=== PATIENT | female | born 1940 | race Caucasian/White ===

== ENCOUNTER 2018-02-19 17:01 | Emergency (ER) | payer MEDICARE, SELFPAY ==
[2018-02-19 17:06] VITALS: BP 132/66; PULSE 72; RESP 16; TEMP 36.9; O2SAT 100
--- NOTE | 2018-02-19 17:21 | DI.CT_ITS ---
SYMPTOMS/DIAGNOSIS: FALL DOWNSTAIRS, LT ABD PAIN, MIDLINE L4 PAIN, LT HIP PAIN NONCONTRAST HEAD CT: There are no prior comparison exams. There is a defect in the right cerebellar skull presumably related to previous craniotomy. There is asymmetry in the cerebellar hemispheres, also likely post surgical. There is mild atrophy. No acute infarct, hemorrhage or mass is seen. There is no evidence of skull fracture. The sinuses and mastoid air cells appear clear. IMPRESSION: No acute abnormality. CT OF THE CERVICAL SPINE: There is no evidence of fracture. Degenerative disc changes are noted. The alignment appears normal. There is no paraspinal hematoma or prevertebral soft tissue swelling. IMPRESSION: Degenerative changes. No acute abnormality. CT OF THE CHEST, ABDOMEN AND PELVIS: There are no prior comparison exams. CHEST CT: There is a 10 mm nodule seen at the left lung base. No additional nodules are identified. No pleural or pericardial effusions or infiltrates are present. There is no evidence of adenopathy. No compression fractures, lytic or blastic lesions are seen. A nodule is incidentally noted in the right lobe of the thyroid. IMPRESSION: 10 mm left lower lobe nodule. Follow up is recommended according to the Fleischner's Society Guidelines given the patient's level of risk. ABDOMEN AND PELVIS CT: The liver, gallbladder, spleen, pancreas, kidneys and adrenals appear normal. There is no bowel dilatation, free air or free fluid. The left gonadal vein is somewhat prominent. The findings could indicate pelvic congestion syndrome. Clinical correlation is recommended. No acute fractures are seen. There are facet degenerative changes and mild spondylolisthesis at L 5 - S 1. There are severe degenerative changes involving the left hip and moderate degenerative changes of the right hip. IMPRESSION: No acute abnormality. Prominent left gonadal vein could indicate pelvic congestion syndrome. Clinical correlation is recommended. CT OF THE THORACIC SPINE RECONSTRUCTIONS: The images were reconstructed from the chest CT. There is no evidence of a fracture or suspicious lytic or blastic lesion. Degenerative changes are seen. There are several hemangiomas. There is a mild scoliosis. IMPRESSION: No acute abnormality. CT OF THE LUMBAR SPINE RECONSTRUCTIONS: The exam was reconstructed from the abdomen and pelvic CT. There is no evidence of an acute compression fracture. There are subacute appearing fractures of the left transverse processes of L 1 through L 3. Degenerative disc changes are seen greatest on the left side at L 4 - 5. There are facet degenerative changes causing mild spondylolisthesis at L 5 - S 1. No spondylolysis is seen. IMPRESSION: Subacute appearing left transverse processes fractures at L 1 through L 3. Degenerative changes.
[2018-02-19 17:51] LABS: Abs Immature Grans 0.03 k/cumm (0.0-0.09); Absolute Basophil Count 0.03 k/cumm (0.0-0.2); Absolute Lymphocyte Count 1.67 k/cumm (1.2-3.4); Absolute Monocyte Count 0.61 k/cumm (0.11-0.7); Absolute Neutrophil Count 5.91 k/cumm (1.2-6.7); Basophils % 0.4; Eosinophils % 3.5; HCT 36.6 % (36.0-46.0); HGB 12.3 g/dL (12.0-15.5); Immature Grans % 0.4; Lymphocytes % 19.5; Mean Corp. HGB Concentration 33.6 g/dL (32.0-36.0); Mean Corpuscular Hemoglobin 30.8 pg (27.0-33.0); Mean Corpuscular Volume 91.7 fL (80-95); Mean Platelet Volume 9.4 fL (8.0-11.0); Monocytes % 7.1; Neutrophils % 69.1; Platelet Count 222 x1000/uL (130-400); RBC 3.99 m/cumm (4.00-5.20); RBC Distribution Width 14.3 % (11.7-14.6); White Blood Cell Count 8.55 k/cumm (4.4-10.8)
[2018-02-19 18:04] LABS: ALT 27 U/L (12-78); AST 24 U/L (15-37); Albumin 3.7 g/dL (3.4-5.0); Alkaline Phosphatase 83 U/L (46-116); Anion Gap 7.4 mmol/L (3-11); BUN 13 mg/dL (7-18); Bilirubin, Total 0.4 mg/dL (0.2-1.0); CO2 29.6 mmol/L (21.0-32.0); CREATININE 0.76 mg/dL (0.55-1.02); Calcium 8.9 mg/dL (8.5-10.1); Chloride 101 mmol/L (98-107); Glucose 111 mg/dL (70-100); Potassium 3.8 mmol/L (3.5-5.1); Sodium 138 mmol/L (136-145); Total Protein 7.7 g/dL (6.4-8.2)
--- NOTE | 2018-02-19 18:37 | ED.GENADUL_ITS ---
Discharge Plan Disposition Patient Disposition: HOME Condition: Good Discharge Details Chief Complaint: Nk/Back Pain Clinical Impression: Closed fracture of transverse process of lumbar vertebra, Fall, Arthritis of left hip Primary Care Provider: Javier Anderson ED Provider: Gael Nava Home Meds and New Rx's Prescriptions: New acetaminophen [Mapap Extra Strength] 500 MG tablet 1,000 mg PO Q6H 5 Days Qty: 60 RF: 0 lidocaine [Lidoderm] 1 PATCH patch 1 ea Topical Q24H Qty: 4 RF: 0 Discharge Instructions Instructions: Back Pain (ED) Additional Instructions: Please take the Tylenol and Lidoderm patches as directed. If you notice any worsening of your pain, numbness or tingling, or inability to have a bowel movement or bladder movement please return immediately. The orthopedic surgeon' s office will contact you for a future visit. If you notice any worsening of your symptoms, or any new symptoms such as vomiting, diarrhea, fever, chills, shortness of breath, chest pain, numbness, weakness, or fainting , please return immediately to the emergency department for reevaluation. Please follow up with your primary care provider as soon as possible for reassessment and reevaluation. As always, it was a pleasure participating in your medical care today. Referrals: Ehsan Prado MD [ [facility] STAFF PHYSICIAN] - Medical Decision Making This is a pleasant 77-year-old female with no significant pain who presented for fall. She fell down roughly 10 steps, unsure if she struck her head. She had no loss of. This occurred yesterday, since then she has had moderate pain in her lower back, primarily over the lumbar spine, and the paraspinal component with midline tenderness as well. She has some associated left-sided abdominal tenderness, and left hip tenderness on exam. Because of the patient's age, I am concern for multiple potential fracture sites, and potential intra-abdominal pathology. We will get a CT scan of the head chest neck abdomen and pelvis. 7:50pm Initial CT report returned showing no acute process for all imaging studies except for a small pulmonary nodule and potential mild pelvic congestion. However review of the images did show concern for L1-L2 and L3 left transverse process fracture. I did contact the radiologist and reviewed it with him, and he does confirm that there is evidence of left transverse process fractures of those vertebra. Review of the images demonstrates no other acute process. On my reassessment the patient does feel better with her Lidoderm patch. She is still able to ambulate, but does have some pain in the left hip. There is severe arthritis noted in the left hip on CT scan. No evidence of fracture per the radiologist. With the patient showing no evidence of neurologic deficit, no signs of vertebral body fracture, no other significant acute process I do feel that she can be safely discharged home especially that her pain is controlled. We will recommend Tylenol and Motrin for home use, as well as Lidoderm patches at home. Because of her chronic left hip pain which I feel is notably worsened by her recent fall and the severe arthritis, as well as the transverse process fractures we will have her follow-up with orthopedics on an outpatient basis. She is requesting follow-up with Dr. Prado whom she has heard good things about. We discussed red flags for which to return. I have extensively reviewed the treatment plan and discharge instructions with the patient and their family. I have addressed all patient concerns at this time. The patient and family was made aware of what symptoms to monitor for that would warrant a return to the emergency department. Discussed the plan with the patient and family, they demonstrate verbal understanding and agreement with our assessment and plan at this time. Exam: CT Chest With Intravenous Contrast EXAM DATE/TIME: 02/19/2018 5:24 PM CLINICAL HISTORY: 77 years old, female; Pain; Other: Back pain Technique: Axial computed tomography images of the chest with intravenous contrast. Coronal and sagittal reformatted images were created and reviewed. Comparison: No relevant prior studies available. Findings: Mild interstitial lung scarring. No significant focal consolidation. Indeterminate 9.6 mm nodule in the left lower lobe. Please see the final report for details as to the local protocol for followup. Also see the Fleischner criteria below. Diffuse degenerative spurring of the spine without evidence of acute fracture or specific bony destructive process. Impression: Left lower lobe pulmonary nodule see above. No other specific etiology identified for the patient's symptoms. Exam: CT Abdomen and Pelvis With Intravenous Contrast EXAM DATE/TIME: 02/19/2018 5:24 PM CLINICAL HISTORY: 77 years old, female; Pain; Other: Back pain Technique: Axial computed tomography images of the abdomen and pelvis with intravenous contrast. Coronal and sagittal reformatted images were created and reviewed. Comparison: No relevant prior studies available. Findings: Prominent left-sided pelvic venous structures with an enlarged left gonadal vein suggesting possible pelvic congestion syndrome. Normal appearing solid organs. No intestinal obstruction. No obstructive uropathy. No free fluid. No free air. No inflammatory changes. Impression: Prominent left-sided pelvic venous structures with an enlarged left gonadal vein suggesting possible pelvic congestion syndrome. No other specific etiology identified for the patient's symptoms. As per Fleischner Society guidelines for follow-up and management of pulmonary nodules: Recommend initial follow-up chest CT at 3, 9 and 24 months. Consider contrast enhanced chest CT, PET scan and/or biopsy as clinically warranted. Dictated and Authenticated by: Vincenzo Lopez MD. Ordering:GEMMA POOLE MD EXAM: CT Thoracic Spine Without Intravenous Contrast EXAM DATE/TIME: 02/19/2018 5:28 PM CLINICAL HISTORY: 77 years old, female; Pain; Low back pain; Pain in thoracic spine TECHNIQUE: Axial computed tomography images of the thoracic spine without intravenous contrast. Coronal and sagittal reformatted images were created and reviewed. COMPARISON: No relevant prior studies available. FINDINGS: Mild diffuse degenerative spurring. No significant focal subluxation. No evidence of acute fracture. Mild apical lung scarring. Impression: No evidence of acute bony injury. EXAM: CT Lumbar Spine Without Intravenous Contrast EXAM DATE/TIME: 02/19/2018 5:28 PM CLINICAL HISTORY: 77 years old, female; Pain; Low back pain; Pain in thoracic spine TECHNIQUE: Axial computed tomography images of the lumbar spine without intravenous contrast. Coronal and sagittal reformatted images were created and reviewed. COMPARISON: No relevant prior studies available. FINDINGS: Mild diffuse degenerative disc and facet disease most pronounced at L4-5. No significant focal subluxation. No evidence of acute fracture. Impression: No evidence of acute bony injury. Dictated and Authenticated by: Vincenzo Lopez MD. Ordering:GEMMA POOLE MD HPI General Date/Time Provider Initiated Documentation: 02/19/18 17:21 . HPI Narrative: This is a pleasant 77-year-old female with no past medical history who presents today for evaluation after a fall. She is on no blood thinners. The patient states that she was working in the attic when she fell down 10 steps, landing on her back. She does not remember hitting her head but she does remember seeing funny shapes and things in her vision shortly thereafter, which quickly resolved. Since then she has had notable lower back pain, as well as left hip pain. She denies any headache, vision changes, or neck pain peer she has not taken anything for the pain at home. She has been using a walker secondary to the pain. Her pain is made worse with movement, it is improved by nothing. She denies any associated numbness, tingling, weakness. She does admit to some associated abdominal pain in the left upper and left mid abdominal regions. She has had no associated vomiting or diarrhea. She denies any saddle anesthesia, any bowel or bladder incontinence. She has been able to urinate well without difficulty. She has been able to eat without any significant difficulty. Patient denies any significant recent past surgical history, she denies any IV or illicit drug use. She denies any pertinent family history. She has no other complaints at this time. Related Data Home Medications Medication Instructions Recorded Confirmed acetaminophen [Mapap Extra 1,000 mg PO Q6H 5 Days #60 tab 02/19/18 Strength] lidocaine [Lidoderm] 1 ea TOPICAL Q24H #4 patch 02/19/18 Previous Rx's Medication Instructions Recorded acetaminophen [Mapap Extra 1,000 mg PO Q6H 5 Days #60 tab 02/19/18 Strength] lidocaine [Lidoderm] 1 ea TOPICAL Q24H #4 patch 02/19/18 Allergies Allergy/AdvReac Type Severity Reaction Status Date / Time codeine AdvReac Mild Nausea Unverified 02/19/18 17:23 General Stated Complaint: Nk/Back Pain MIKAL: 3 Review of Systems Review of Systems All systems reviewed & are unremarkable except as noted in HPI and below PFSH Social History Smoking/Tobacco Use Status: Never Exam Narrative Exam Narrative: 1.Const: Well-nourished, Well-developed, appearing stated age 2.Eyes: PERRL, no conjunctival injection, and symmetrical lids. 3.ENT: Atraumatic external nose and ears. Moist MM. Neck: Symmetric, trachea midline, No thyromegaly. There is no evidence of raccoon eyes, damon sign, CSF rhinorrhea, mastoid tenderness, cranial crepitus, hemotympanum, exophthalmos , or hyphema. Patient demonstrates intact dentition with no signs of tooth avulsion or fracture, no signs of jaw deformity, no evidence of a LeFort's fracture, with an intact palate, nose and orbital region. There is no evidence of a nasal septal hematoma. No proptosis. Jaw closes symmetrically. Airway is clear. 4.CVS: Regular rate and rhythm, Normal s1 and s2. No murmurs, carotid bruits, rubs, or gallops. Radial pulses 2+ bilaterally and symmetric. Dorsalis pedis pulses 2+ bilaterally and symmetric. 2+ capillary refill. No evidence of distant heart sounds. No extremity edema. No evidence of gross hemorrhage. 5.RESP: Airway clear, no obstructions. No abrasions or ecchymosis. Chest movement symmetric with respirations. No chest wall tenderness. Trachea midline. No crepitus. No step offs. No paradoxical movements. Lungs are clear to auscultation bilaterally. No rales, rhonchi, wheezing or stridor. Breath sound symmetric. No Sucking chest wounds. No clinical evidence of significant chest trauma. 6.GI: Soft, nondistended, mild tenderness over the left lower abdominal quadrant , no guarding or rebound. Bowel tones normoactive. No masses or organomegaly. No ecchymosis or abrasions. No periumbilical ecchymosis or seatbelt sign. No flank or CVA tenderness. No clinical signs of significant trauma. No clinical evidence of significant abdominal trauma. 7.MSK: No gross deformities or discolorations or lesions. Tolerates full range of motion of extremities however she has moderate tenderness on movement of the patient's left hip. Mild to moderate pain with logroll of left hip, no shortening of note no instability. All compartments of upper and lower extremities are soft with no tenderness. Vascular exam demonstrates brisk capillary refill and intact pulses in all extremities. Pelvic exam demonstrates a stable pelvis, nontender to lateral compression and palpation of symphysis pubis.. No midline tenderness to palpation over the CTS spine. Mild to moderate midline and paraspinal tenderness of the lumbar spine. No step-off sign. No significant deformity. Normal ROM in flexion, extension, side bend, and rotation. Patient has +5 out of 5 strength in the lower extremities in dorsiflexion and plantarflexion, knee flexion and extension, hip flexion and extension. There is +2 over 2 dorsalis pedis pulses bilaterally. There is normal sensation to the skin with light touch at the foot, knee, and hip. Normal saddle sensation. Good sensation over the deep sural nerve area bilaterally. Rectal exam demonstrated good tone. Reflexes are +2 over 4 in the patellar reflex bilaterally. +5 out of 5 strength in the medial, ulnar, radial nerve distribution bilaterally in the hands as well as intact light touch sensation to these dermatomes on the hands 8.Skin: Warm, Dry. No rashes or lesions. 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 Sensation grossly intact, no focal neurologic deficits. 10.Psych: (AAO) x3. Appropriate mood and affect Course Vital Signs Temperature 36.9 C 02/19/18 17:06 Pulse 72 02/19/18 17:06 Respiratory Rate 16 02/19/18 17:06 Blood Pressure 132/66 02/19/18 17:06 Pulse Oximetry 100 02/19/18 17:06 Temperature 36.9 C 02/19/18 17:06 Temperature Source Skin 02/19/18 17:06 Pulse 72 02/19/18 17:06 Respiratory Rate 16 02/19/18 17:06 Respiratory Effort 02/19/18 17:41 Blood Pressure 132/66 02/19/18 17:06 Blood Pressure Position Standing 02/19/18 17:06 Pulse Oximetry 100 02/19/18 17:06 Oxygen Delivery Method Room Air 02/19/18 17:06 Oxygen Flow Rate 0 02/19/18 17:06 Pain Level 8 02/19/18 17:06 Lab/Test Results Lab/Test Results: Laboratory Tests Range/Units 02/19/18 02/19/18 17:35 17:35 WBC (4.4-10.8) k/cumm 8.55 RBC (4.00-5.20) m/cumm 3.99 L Hgb (12.0-15.5) g/dL 12.3 Hct (36.0-46.0) % 36.6 MCV (80-95) fL 91.7 MCH (27.0-33.0) pg 30.8 MCHC (32.0-36.0) g/dL 33.6 RDW (11.7-14.6) % 14.3 Plt Count (130-400) x1000/uL 222 MPV (8.0-11.0) fL 9.4 Immature Gran % 0.4 Neutrophils % 69.1 Lymphocytes % 19.5 Monocytes % 7.1 Eosinophils % 3.5 Basophils % 0.4 Absolute Neutrophils (1.2-6.7) k/cumm 5.91 Absolute Lymphocytes (1.2-3.4) k/cumm 1.67 Absolute Monocytes (0.11-0.7) k/cumm 0.61 Absolute Eosinophils (0.0-0.7) k/cumm 0.30 Absolute Basophils (0.0-0.2) k/cumm 0.03 Sodium (136-145) mmol/L 138 Potassium (3.5-5.1) mmol/L 3.8 Chloride (98-107) mmol/L 101 Carbon Dioxide (21.0-32.0) mmol/L 29.6 Anion Gap (3-11) mmol/L 7.4 BUN (7-18) mg/dL 13 Creatinine (0.55-1.02) mg/dL 0.76 Estimated GFR/1.73 m2 (mL/min/1.73m2) >= 60.00 Glucose (70-100) mg/dL 111 H Calcium (8.5-10.1) mg/dL 8.9 Total Bilirubin (0.2-1.0) mg/dL 0.4 AST (15-37) U/L 24 ALT (12-78) U/L 27 Alkaline Phosphatase (46-116) U/L 83 Total Protein (6.4-8.2) g/dL 7.7 Albumin (3.4-5.0) g/dL 3.7
[2018-02-19] MEDS: Omnipaque 350 MG/ML 100 ML BTL IJ (18:45)
--- NOTE | 2018-02-19 18:47 | DI.VRAD_ITS ---
XAM: CT Head Without Intravenous Contrast EXAM DATE/TIME: 02/19/2018 5:24 PM CLINICAL HISTORY: 77 years old, female; Injury or trauma; Fall; Initial encounter; Blunt trauma TECHNIQUE: Axial computed tomography images of the head/brain without intravenous contrast. Coronal and sagittal reformatted images were created and reviewed. COMPARISON: No relevant prior studies available. FINDINGS: Prior right occipital craniotomy. 2.2 cm arachnoid cyst with impression on the right posterior brainstem. No evidence of hemorrhage. No other mass effect. No acute intracranial abnormality. No evidence of acute fracture. Impression: No evidence of acute intracranial process. EXAM: CT Cervical Spine Without Intravenous Contrast EXAM DATE/TIME: 02/19/2018 5:24 PM CLINICAL HISTORY: 77 years old, female; Injury or trauma; Fall; Initial encounter; Blunt trauma TECHNIQUE: Axial computed tomography images of the cervical spine without intravenous contrast. Coronal and sagittal reformatted images were created and reviewed. COMPARISON: No relevant prior studies available. FINDINGS: Diffuse degenerative disc and facet disease. Mild straightening of the cervical spine most likely positional. No focal subluxation. No acute fracture. Paraspinal soft tissues unremarkable. Lung apices within normal limits. Dictated and Authenticated by: Vincenzo Lopez MD. Ordering:GEMMA POOLE MD
--- NOTE | 2018-02-19 19:02 | DI.VRAD_ITS ---
EXAM: CT Chest With Intravenous Contrast EXAM DATE/TIME: 02/19/2018 5:24 PM CLINICAL HISTORY: 77 years old, female; Pain; Other: Back pain TECHNIQUE: Axial computed tomography images of the chest with intravenous contrast. Coronal and sagittal reformatted images were created and reviewed. COMPARISON: No relevant prior studies available. FINDINGS: Mild interstitial lung scarring. No significant focal consolidation. Indeterminate 9.6 mm nodule in the left lower lobe. Please see the final report for details as to the local protocol for followup. Also see the Fleischner criteria below. Diffuse degenerative spurring of the spine without evidence of acute fracture or specific bony destructive process. Impression: Left lower lobe pulmonary nodule see above. No other specific etiology identified for the patient's symptoms. EXAM: CT Abdomen and Pelvis With Intravenous Contrast EXAM DATE/TIME: 02/19/2018 5:24 PM CLINICAL HISTORY: 77 years old, female; Pain; Other: Back pain TECHNIQUE: Axial computed tomography images of the abdomen and pelvis with intravenous contrast. Coronal and sagittal reformatted images were created and reviewed. COMPARISON: No relevant prior studies available. FINDINGS: Prominent left-sided pelvic venous structures with an enlarged left gonadal vein suggesting possible pelvic congestion syndrome. Normal appearing solid organs. No intestinal obstruction. No obstructive uropathy. No free fluid. No free air. No inflammatory changes. Impression: Prominent left-sided pelvic venous structures with an enlarged left gonadal vein suggesting possible pelvic congestion syndrome. No other specific etiology identified for the patient's symptoms. As per Fleischner Society guidelines for follow-up and management of pulmonary nodules: Recommend initial follow-up chest CT at 3, 9 and 24 months. Consider contrast enhanced chest CT, PET scan and/or biopsy as clinically warranted. Dictated and Authenticated by: Vincenzo Lopez MD. Ordering:GEMMA POOLE MD
--- NOTE | 2018-02-19 19:10 | DI.VRAD_ITS ---
EXAM: CT Thoracic Spine Without Intravenous Contrast EXAM DATE/TIME: 02/19/2018 5:28 PM CLINICAL HISTORY: 77 years old, female; Pain; Low back pain; Pain in thoracic spine TECHNIQUE: Axial computed tomography images of the thoracic spine without intravenous contrast. Coronal and sagittal reformatted images were created and reviewed. COMPARISON: No relevant prior studies available. FINDINGS: Mild diffuse degenerative spurring. No significant focal subluxation. No evidence of acute fracture. Mild apical lung scarring. Impression: No evidence of acute bony injury. EXAM: CT Lumbar Spine Without Intravenous Contrast EXAM DATE/TIME: 02/19/2018 5:28 PM CLINICAL HISTORY: 77 years old, female; Pain; Low back pain; Pain in thoracic spine TECHNIQUE: Axial computed tomography images of the lumbar spine without intravenous contrast. Coronal and sagittal reformatted images were created and reviewed. COMPARISON: No relevant prior studies available. FINDINGS: Mild diffuse degenerative disc and facet disease most pronounced at L4-5. No significant focal subluxation. No evidence of acute fracture. Impression: No evidence of acute bony injury. Dictated and Authenticated by: Vincenzo Lopez MD. Ordering:GEMMA POOLE MD
[2018-02-19 20:20] VITALS: BP 130/67; PULSE 70; RESP 16; TEMP 36.7; O2SAT 100
== END 2018-02-19 20:27 | disposition home or self-care (01) ==
LOC: ER 20:36
PROVIDERS: Emergency Provider Student in an Organized Health Care Education/Training Program; PCP Internal Medicine
DX: S22.018A Other fracture of first thoracic vertebra, initial encounter for closed fracture (principal); S22.028A Other fracture of second thoracic vertebra, initial encounter for closed fracture; S22.038A Other fracture of third thoracic vertebra, initial encounter for closed fracture; W10.8XXA Fall (on) (from) other stairs and steps, initial encounter; M16.12 Unilateral primary osteoarthritis, left hip; R91.1 Solitary pulmonary nodule
CPT/HCPCS: 36415; 74177; 80053; 99285; 70450; 71260; 72125; 85025; 99284; J3490

== ENCOUNTER → 2018-03-10 09:39 | Outpatient (BNVA) | payer MEDICARE, SELFPAY | PROVIDERS: PCP Internal Medicine; Referring Provider Internal Medicine; Visit Provider Student in an Organized Health Care Education/Training Program | DX: S32.019A Unspecified fracture of first lumbar vertebra, initial encounter for closed fracture (principal); S32.029A Unspecified fracture of second lumbar vertebra, initial encounter for closed fracture; S32.039A Unspecified fracture of third lumbar vertebra, initial encounter for closed fracture; W10.8XXA Fall (on) (from) other stairs and steps, initial encounter; M16.12 Unilateral primary osteoarthritis, left hip | CPT/HCPCS: 99204; 99214; L0626 ==

== ENCOUNTER 2018-03-22 00:37 | Outpatient (CLI) | payer MEDICARE, SELFPAY ==
--- NOTE | 2018-03-22 07:33 | DI.RAD_ITS ---
SYMPTOM/DIAGNOSIS: OA LT HIP, M16.12 LEFT HIP INJECTION: Fluoroscopy Time: 4 seconds Fluoroscopy was utilized by Dr. Prado during left hip joint injection. Hard copy shows injection in the left hip joint.
--- NOTE | 2018-03-22 12:56 | OPPNE_ITS ---
Date of service: 03/22/18 Time of Service: 12:56 Procedure Note Date of procedure: 03/22/18 Procedure: Left Hip Injection with Fluoroscopic Guidance Surgeon/Proceduralist/Physician: Ehsan Prado Procedure Diagnosis: Left Hip Osteoarthritis Procedure Indications: Darvin has had persistent pain of the LEFT hip and groin. Noninvasive measures have been tried. To serve as both diagnostic and therapeutic, an injection under fluoroscopy was recommended. I had discussed the risks of the procedure and the patient elected to proceed. Procedure Description: Darvin was greeted in the flouroscopy room. The correct side was identified and the consent was reviewed with the patient and signed. The patient was then placed in the supine position on the fluoroscopy table. The LEFT hip was then prepped with Chloraprep. The anterolateral injection starting point was identiifed by bony landmarks and fluoroscopy. The skin and soft tissue in the tract of the injection was anesthetized with 1% Lidocaine. A spinal needle was then inserted deep into the hip joint at the level of the lateral femoral neck under fluoroscopic guidance. A small amount of Omnipaque solution was injected to confirm intraarticular placement. Once confirmed, the hip was injected with 6cc of 0.5% Bupivicaine and 80mg of Depo- Medrol. A bandaid was placed on the injection site. The patient tolerated the procedure well and noted improvement in pre-injection pain.
[2018-03-22] MEDS: Bupivacaine 0.5% Pres-Free 10 ML VIAL 6 ML IJ (13:04)
[2018-03-22] MEDS: Omnipaque 300 MG/ML 10 ML BTL IJ (13:05)
[2018-03-22] MEDS: methylPREDNISolone ACETATE 80 MG/ML VIAL IM (13:05)
== END 2018-03-22 00:57 ==
PROVIDERS: PCP General Practice; Visit Provider Student in an Organized Health Care Education/Training Program
DX: M25.552 Pain in left hip (principal); M16.12 Unilateral primary osteoarthritis, left hip
CPT/HCPCS: 20610; 77002; J1040

== ENCOUNTER → 2018-04-05 09:45 | Outpatient (BNVA) | payer MEDICARE, SELFPAY | PROVIDERS: PCP General Practice; Referring Provider General Practice; Visit Provider Student in an Organized Health Care Education/Training Program | DX: M16.12 Unilateral primary osteoarthritis, left hip (principal) | CPT/HCPCS: 99213 ==

== ENCOUNTER 2018-04-14 13:21 | Outpatient (CLI) | payer MEDICARE, SELFPAY ==
[2018-04-14 13:59] LABS: Abs Immature Grans 0.01 k/cumm (0.0-0.09); Absolute Basophil Count 0.04 k/cumm (0.0-0.2); Absolute Lymphocyte Count 1.41 k/cumm (1.2-3.4); Absolute Monocyte Count 0.41 k/cumm (0.11-0.7); Absolute Neutrophil Count 3.39 k/cumm (1.2-6.7); Basophils % 0.7; Eosinophils % 1.9; HCT 34.5 % (36.0-46.0); HGB 11.4 g/dL (12.0-15.5); Immature Grans % 0.2; Lymphocytes % 26.3; Mean Corpuscular Hemoglobin 30.6 pg (27.0-33.0); Mean Corpuscular Volume 92.5 fL (80-95); Mean Platelet Volume 9.3 fL (8.0-11.0); Monocytes % 7.6; Neutrophils % 63.3; Platelet Count 199 x1000/uL (130-400); RBC 3.73 m/cumm (4.00-5.20); RBC Distribution Width 13.6 % (11.7-14.6); White Blood Cell Count 5.36 k/cumm (4.4-10.8)
[2018-04-14 14:45] LABS: ALT 23 U/L (12-78); AST 15 U/L (15-37); Albumin 3.5 g/dL (3.4-5.0); Alkaline Phosphatase 66 U/L (46-116); Anion Gap 6.6 mmol/L (3-11); BUN 26 mg/dL (7-18); Bilirubin, Total 0.5 mg/dL (0.2-1.0); CO2 30.4 mmol/L (21.0-32.0); CREATININE 1.01 mg/dL (0.55-1.02); Calcium 8.9 mg/dL (8.5-10.1); Chloride 102 mmol/L (98-107); Estimated GFR 53.43 (mL/min/1.73m2); Glucose 136 mg/dL (70-100); Potassium 4.1 mmol/L (3.5-5.1); Sodium 139 mmol/L (136-145); Total Protein 6.5 g/dL (6.4-8.2)
== END 2018-04-14 13:41 ==
PROVIDERS: PCP General Practice; Visit Provider General Practice
DX: R53.83 Other fatigue (principal); M16.12 Unilateral primary osteoarthritis, left hip
CPT/HCPCS: 36415; 80053; 84443; 85025

== ENCOUNTER → 2018-05-19 09:44 | Outpatient (BNVA) | payer MEDICARE, SELFPAY | PROVIDERS: PCP General Practice; Referring Provider General Practice; Visit Provider Student in an Organized Health Care Education/Training Program | DX: M16.12 Unilateral primary osteoarthritis, left hip (principal); Z47.89 Encounter for other orthopedic aftercare | CPT/HCPCS: 99212; 99213 ==

== ENCOUNTER → 2018-06-23 10:44 | Outpatient (BNVA) | payer MEDICARE, SELFPAY | PROVIDERS: PCP General Practice; Referring Provider General Practice; Visit Provider Student in an Organized Health Care Education/Training Program | DX: M16.12 Unilateral primary osteoarthritis, left hip (principal); Z71.89 Other specified counseling | CPT/HCPCS: 99212 ==

== ENCOUNTER → 2020-01-23 10:23 | Outpatient (BNVA) | payer MEDICARE, SELFPAY | PROVIDERS: PCP General Practice; Referring Provider General Practice; Visit Provider Student in an Organized Health Care Education/Training Program | DX: M16.12 Unilateral primary osteoarthritis, left hip (principal) | CPT/HCPCS: 99213 ==

== ENCOUNTER 2020-03-14 13:23 | Outpatient (CLI) | payer MEDICARE, SELFPAY ==
--- NOTE | 2020-03-14 13:25 | DI.RAD_ITS ---
EXAM: XR PELVIS AP CLINICAL HISTORY: left hip DJD. TECHNIQUE: 2D digital imaging was performed. COMPARISON: No exams were available for comparison FINDINGS: BONES: No acute fracture is present. No bony destructive lesion is seen. The sacrum is largely obscur ed due to overlying bowel. JOINTS: No dislocation present. Marked degenerative changes are seen in the left hip with marked join t space narrowing, subchondral sclerosis and cysts and periarticular spurring. Moderate degenerative changes are seen in the right hip with moderate joint space narrowing, subchondral sclerosis and cys ts and periarticular spurring. SOFT TISSUE: Normal. IMPRESSION: Marked left and moderate right hip osteoarthritis. DATA REPOSITORY: RADIATION DOSE DELIVERED:
== END 2020-03-14 13:43 ==
PROVIDERS: PCP General Practice; Referring Provider General Practice; Visit Provider Physician Assistant
DX: M16.0 Bilateral primary osteoarthritis of hip (principal)
CPT/HCPCS: 72170

== ENCOUNTER 2020-03-16 01:27 | Outpatient (CLI) | payer MEDICARE, SELFPAY ==
[2020-03-16 10:51] LABS: HCT 37.6 % (36.0-46.0); HGB 12.1 g/dL (11.2-15.7); MCH 30.3 pg (27.0-33.0); MCHC 32.2 % (32.0-36.0); MCV 94.2 fL (80-95); MPV 9.5 fL (8.0-11.0); Platelet Count 236 10^3/uL (130-400); RBC 3.99 10^6/uL (3.93-5.22); RDW 13.5 % (11.7-14.6); RDW-SD 46.8 fL; WBC 5.56 10^3/uL (4.4-10.8)
[2020-03-16 12:22] LABS: Anion Gap 6.7 mmol/L (3-11); BUN 20 mg/dL (7-18); CO2 30.3 mmol/L (21.0-32.0); CREATININE 0.86 mg/dL (0.55-1.02); Calcium 9.4 mg/dL (8.5-10.1); Chloride 101 mmol/L (98-107); Glucose 82 mg/dL (74-106); Potassium 4.2 mmol/L (3.5-5.1); Sodium 138 mmol/L (136-145)
[2020-03-18 09:08] LABS: SARS-CoV-2 RNA Not Detected (NotDetected); SARS-CoV-2 RNA Source Nasal/Nares
== END 2020-03-16 01:47 ==
PROVIDERS: PCP General Practice; Visit Provider Student in an Organized Health Care Education/Training Program
DX: M25.552 Pain in left hip (principal); M16.12 Unilateral primary osteoarthritis, left hip; Z11.59 Encounter for screening for other viral diseases; Z01.818 Encounter for other preprocedural examination; Z01.812 Encounter for preprocedural laboratory examination
CPT/HCPCS: 36415; 80048; 85027; 86850; 86900; 86901; U0003

== ENCOUNTER 2020-03-20 07:13 | Observation (INO) | payer MEDICARE, SELFPAY ==
[2020-03-20] VITALS (8 sets, daily range): BP systolic 95–121; BP diastolic 49–69; PULSE 57–84; RESP 14–16; TEMP 36.2–36.5; O2SAT 96–100
--- NOTE | 2020-03-20 07:00 | DI.RAD_ITS ---
EXAM: XR HIP LT IN OR CLINICAL HISTORY: total hip TECHNIQUE: 2D and realtime digital imaging was performed. CONTRAST MATERIAL: Refer to procedure report. COMPARISON: No exams were available for comparison FINDINGS: Fluoroscopy was provided for Dr. Prado during the performance of a left total hip replacement. P lelia refer to the procedure report for complete details. Fluoro time: 46 seconds IMPRESSION: RADIATION DOSE DELIVERED:
[2020-03-20] MEDS: Lactated Ringers 1,000 ML 80 ML IV (07:04)
[2020-03-20] MEDS: Celecoxib 200 MG CAP 400 MG PO (07:04)
[2020-03-20] MEDS: Acetaminophen 500 MG TAB 1000 MG PO ×2 (07:04→13:42)
--- NOTE | 2020-03-20 07:16 | W.PM.DS.N ---
Documented by User: Grisel Bunnxon 03/20/20 07:20 DS: Diagnosis Discharge Diagnosis (1) Osteoarthritis of left hip: Status: Chronic Discharge Plan Disposition Patient Disposition: HOME Condition: Good Discharge Details Reason For Visit: L HIP DJD Admit Date/Time: 03/20/20 06:05 Admit Provider: Ehsan Prado Attending Provider: Ehsan Prado Primary Care Provider: Terry Andrade Hospital Course Hospital Course: Patient was admitted to the medical/surgical floor following the procedure. The surgery was tolerated well without any notable medical, surgical, or anesthetic complications. Mobilization began post-operatively. They were voiding spontaneously. Vitals were stable. Physical therapy worked with the patient and was cleared for discharge home. No acute medical issues. Pain was controlled on oral regimen. Home Meds and New Rx's Prescriptions: New celecoxib [Celebrex] 200 mg capsule 200 mg PO BID Qty: 30 RF: 2 aspirin 81 mg tablet,delayed release (DR/EC) 81 mg PO BID 30 Days Qty: 60 RF: 0 acetaminophen 500 mg tablet 500 mg PO Q6H PRN (Reason: pain) Qty: 60 RF: 2 oxycodone 5 mg tablet 5 mg PO Q6H PRN (Reason: severe post-operative pain) Qty: 12 RF: 0 pantoprazole 40 mg tablet,delayed release (DR/EC) 40 mg PO DAILY 30 Days Qty: 30 RF: 0 No Action (DME) Raised Toilet Seat See Rx Instructions .ROUTE .MEDSUPPLY Qty: 1 RF: 0 (DME) Shower Chair See Rx Instructions .ROUTE .MEDSUPPLY Qty: 1 RF: 0 [place] 3 Fish Oil 900-1,400 mg Capsule,Delayed Release(Dr/Ec) 1 cap PO DAILY RF: 0 Ca-D3-mag [id number]-aphe-eah-shaquille-bor [Calcium 600-D3 Plus (mag-zinc)] 600 mg calcium- 800 unit-50 mg Tablet 2 tab PO BID RF: 0 Discharge Instructions Additional Instructions: Total Hip Discharge Instructions Activity: The most important activity is to walk. You should try to take short walks a few times a day. You have no restrictions on movement or positioning, but do not try to force what you do. You will find some stiffness and weakness with hip flexion (lifting your knee). Do not try to strengthen this too early, continue to practice walking and stairs and this will come. - Outpatient physical therapy can be helpful to help return you to a normal gait and improve your flexibility and strength. This can start around 2 weeks. For some patients, it?s not necessary. Usually this is determined at the time of discharge or at the first post-operative visit. - You should wear the ALEXIS hose on both legs for 2 weeks. Dressing: Keep the surgical dressing in place for at least one week. After the first week it may be removed and replace with light gauze and tape or nothing. It may get wet after 3 days but avoid soaking the dressing. If it gets wet, just lightly pat dry. It is important to always keep some gauze between skin folds, especially when you are sitting. Spend some time with the wound exposed when you are lying flat as the incision does wrinkle onto itself. Medications: - You should take Tylenol and an anti-inflammatory Celebrex as your primary pain control medications. If the Celebrex is too expensive or not covered, please call the office for another alternative (Advil/Ibuprofen or Naproxen/Aleve). - You have been prescribed a stronger pain medication Oxycodone for breakthrough pain, take as needed as prescribed. - You have also been prescribed a stomach acid reduction agent Pantoprozole to help reduce stomach acid and reflux. - You will be taking Aspirin 81mg twice a day for DVT prevention unless instructed otherwise. - If you have constipation you should take Colace (which was prescribed) or Miralax (which you may purchase [id number]). It takes most people 3-4 days to have a bowel movement. Follow-up: 2 weeks If you have any acute concerns or questions, please do not hesitate to contact the office at [phone]. You may contact Dr. Prado with any questions after hours through the hospital at [phone] or on his cell phone at [phone]. 1. Encounter Date and Reason I certify that DARVIN RED was seen by Ehsan Prado MD on 03/20/20 and that I had a [id number] encounter with this patient that meets the physician face to face encounter requirements. 2. Clinical Findings Supporting Skilled Need and Homebound Status I certify that home health services are medically necessary, include either intermittent retirement and/or physical/speech therapy, and that this patient is homebound in that absences from the home require considerable and taxing effort and are infrequent or of short duration, or are attributable to the need to receive medical care. [X] (a) Attached documentation from encounter provides clinical findings supporting skilled need and homebound status (including what assistance patient requires to leave the home). The encounter with the patient was in whole, or in part, for the following medical condition, which is the primary reason for home health care: L HIP DJD Prison: Physical Therapy: Darvin would benefit from physical therapy to address gait abnormalities, weakness from DOUGLAS. She should avoid deep flexion and aggressive motions but should focus on ambulation, stair climbing and gentle strengthening. ROM shold not be passively assessed or treated early on. Speech Therapy: Homebound: Darvin is unable to leave her home unassisted. She is homebound. 3. Certification and Authentication I certify that I composed the above information based on my clinical judgement relating to this patient's medical condition and, if applicable, clinical findings communicated to me by the NPP or inpatient physician who performed the Home Health Referral. All further orders will be obtained through Dr. Prado Referrals: Ehsan Prado MD [ [facility] STAFF PHYSICIAN] - Activity:: Activity as Tolerated Equipment/Supplies:: Walker Diet:: As Tolerated Discharge Orders Discharge Orders: Discharge Order (Routine); Ordered 03/20/20 Ordered By: Ehsan Prado DS: Data Vitals/I&O Vitals and I&O: Vital Signs Temperature 36.4 C L 03/20/20 06:17 Pulse 84 03/20/20 06:17 Pulse Rhythm Regular 03/20/20 06:17 Respiratory Rate 16 03/20/20 06:17 Respiratory Effort 03/20/20 06:17 Respiratory Depth Normal 03/20/20 06:17 Respiratory Pattern Normal 03/20/20 06:17 Blood Pressure 107/68 03/20/20 06:17 Pulse Oximetry 99 03/20/20 06:17 Oxygen Delivery Method Room Air 03/20/20 06:17 Oxygen Flow Rate 0 03/20/20 06:17 Pain Level 0 03/20/20 06:17 Intake & Output 03/19/20 03/19/20 03/20/20 11:59 23:59 11:59 Weight 56.699 kg 57.7 kg [facility] Medical History Closed left ankle fracture Fatigue Surgical History Brain tumor Reports between [id number] 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 Documented by User: Ehsan Prado MD 03/20/20 13:34 Date of service: 03/20/20 Time of Service: 13:30 Discharge Plan Disposition Patient Disposition: HOME Condition: Good Discharge Details Reason For Visit: L HIP DJD Admit Date/Time: 03/20/20 06:05 Admit Provider: Ehsan Prado Attending Provider: Ehsan Prado Primary Care Provider: Terry Andrade Hospital Course Hospital Course: Patient was admitted to the medical/surgical floor following the procedure. The surgery was tolerated well without any notable medical, surgical, or anesthetic complications. Mobilization began post-operatively. They were voiding spontaneously. Vitals were stable. Physical therapy worked with the patient and was cleared for discharge home. No acute medical issues. Pain was controlled on oral regimen. Home Meds and New Rx's Prescriptions: New celecoxib [Celebrex] 200 mg capsule 200 mg PO BID Qty: 30 RF: 2 aspirin 81 mg tablet,delayed release (DR/EC) 81 mg PO BID 30 Days Qty: 60 RF: 0 acetaminophen 500 mg tablet 500 mg PO Q6H PRN (Reason: pain) Qty: 60 RF: 2 oxycodone 5 mg tablet 5 mg PO Q6H PRN (Reason: severe post-operative pain) Qty: 12 RF: 0 pantoprazole 40 mg tablet,delayed release (DR/EC) 40 mg PO DAILY 30 Days Qty: 30 RF: 0 No Action (DME) Raised Toilet Seat See Rx Instructions .ROUTE .MEDSUPPLY Qty: 1 RF: 0 (DME) Shower Chair See Rx Instructions .ROUTE .MEDSUPPLY Qty: 1 RF: 0 [place] 3 Fish Oil 900-1,400 mg Capsule,Delayed Release(Dr/Ec) 1 cap PO DAILY RF: 0 Ca-D3-mag nb-yybr-ont-shaquille-bor [Calcium 600-D3 Plus (mag-zinc)] 600 mg calcium- 800 unit-50 mg Tablet 2 tab PO BID RF: 0 Discharge Instructions Additional Instructions: Total Hip Discharge Instructions Activity: The most important activity is to walk. You should try to take short walks a few times a day. You have no restrictions on movement or positioning, but do not try to force what you do. You will find some stiffness and weakness with hip flexion (lifting your knee). Do not try to strengthen this too early, continue to practice walking and stairs and this will come. - Outpatient physical therapy can be helpful to help return you to a normal gait and improve your flexibility and strength. This can start around 2 weeks. For some patients, it?s not necessary. Usually this is determined at the time of discharge or at the first post-operative visit. - You should wear the ALEXIS hose on both legs for 2 weeks. Dressing: Keep the surgical dressing in place for at least one week. After the first week it may be removed and replace with light gauze and tape or nothing. It may get wet after 3 days but avoid soaking the dressing. If it gets wet, just lightly pat dry. It is important to always keep some gauze between skin folds, especially when you are sitting. Spend some time with the wound exposed when you are lying flat as the incision does wrinkle onto itself. Medications: - You should take Tylenol and an anti-inflammatory Celebrex as your primary pain control medications. If the Celebrex is too expensive or not covered, please call the office for another alternative (Advil/Ibuprofen or Naproxen/Aleve). - You have been prescribed a stronger pain medication Oxycodone for breakthrough pain, take as needed as prescribed. - You have also been prescribed a stomach acid reduction agent Pantoprozole to help reduce stomach acid and reflux. - You will be taking Aspirin 81mg twice a day for DVT prevention unless instructed otherwise. - If you have constipation you should take Colace (which was prescribed) or Miralax (which you may purchase [id number]). It takes most people 3-4 days to have a bowel movement. Follow-up: 2 weeks If you have any acute concerns or questions, please do not hesitate to contact the office at [phone]. You may contact Dr. Prado with any questions after hours through the hospital at [phone] or on his cell phone at [phone]. 1. Encounter Date and Reason I certify that DARVIN RED was seen by Ehsan Prado MD on 03/20/20 and that I had a [id number] encounter with this patient that meets the physician face to face encounter requirements. 2. Clinical Findings Supporting Skilled Need and Homebound Status I certify that home health services are medically necessary, include either intermittent retirement and/or physical/speech therapy, and that this patient is homebound in that absences from the home require considerable and taxing effort and are infrequent or of short duration, or are attributable to the need to receive medical care. [X] (a) Attached documentation from encounter provides clinical findings supporting skilled need and homebound status (including what assistance patient requires to leave the home). The encounter with the patient was in whole, or in part, for the following medical condition, which is the primary reason for home health care: L HIP DJD Prison: Physical Therapy: Darvin would benefit from physical therapy to address gait abnormalities, weakness from DOUGLAS. She should avoid deep flexion and aggressive motions but should focus on ambulation, stair climbing and gentle strengthening. ROM shold not be passively assessed or treated early on. Speech Therapy: Homebound: Darvin is unable to leave her home unassisted. She is homebound. 3. Certification and Authentication I certify that I composed the above information based on my clinical judgement relating to this patient's medical condition and, if applicable, clinical findings communicated to me by the NPP or inpatient physician who performed the Home Health Referral. All further orders will be obtained through Dr. Prado Referrals: Ehsan Prado MD [ [facility] STAFF PHYSICIAN] - Activity:: Activity as Tolerated Equipment/Supplies:: Walker Diet:: As Tolerated Discharge Orders Discharge Orders: Discharge Order (Routine); Ordered 03/20/20 Ordered By: Ehsan Prado DS: Summary Status at Discharge Functional status at discharge: uses cane/walker Overall status at discharge: patient is progressing back to baseline Mental Status: mental status grossly normal Speech and Movement: speech and movement normal Mood: congruent mood Affect: normal affect Exam Psych Mental Status: mental status grossly normal Speech and Movement: speech and movement normal Mood: congruent mood Affect: normal affect [facility] Medical History Closed left ankle fracture Fatigue Surgical History Brain tumor Reports between [id number] 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
[2020-03-20] MEDS: ceFAZolin 2 GM/50 ML BAG IVPB (07:48)
[2020-03-20] MEDS: Bupivacaine 0.25% Pres-Free 30 ML VIAL (08:18)
[2020-03-20] MEDS: Ketorolac 30 MG/ML VIAL (08:19)
--- NOTE | 2020-03-20 09:44 | W.PM.OP ---
Date of service: 03/20/20 Time of Service: 09:44 Operative Note Operative Note DATE OF PROCEDURE: 03/20/20 PRE-OP DIAGNOSIS: Left Hip Osteoarthritis POST-OP DIAGNOSIS: same PROCEDURE: Left Anterior Total Hip Arthroplasty SURGEON: Ehsan Prado DRAFTER CIVIL (CAD): Grisel Villeda ANESTHESIA: spinal ESTIMATED BLOOD LOSS: 150 PATHOLOGY: none sent COMPLICATIONS: None Patient was transported to: PACU Patient's condition: stable Implants: 1. Depuy [place] Acetabular Component, 50mm 2. Depuy Acetabular Liner, [id number] 3. Depuy Corail High Offset Femoral Stem, Size 14 4. Depuy Altrx Ceramic Femoral Head, Size 32+1mm Indications: I have seen Darvin in clinic for symptoms of hip arthritis, confirmed with radiographic findings. Darvin has exhausted nonoperative methods and was having significant limitations in daily function and desired better function and less pain. I discussed the technical details of a hip replacement. I explained the risks of the procedure to include, but not limited to, bleeding, infection, pain, stiffness, fracture, damage to nerves and vessels, damage to muscles and tendons, loosening, instability, leg length inequality, need for repeat procedure, blood clot and cardiopulmonary demise. Despite these risks, she elected to proceed. Findings: There was significant signs of arthritis throughout the hip. There was a notable floor osteophyte as well as garret-acetabular osteophytes and labral calcification. Procedure Description: Darvin was greeted in the preoperative holding area where the correct side was identified and marked. The consent was reviewed with the patient and signed. The history and physical was updated. All questions were answered. She was taken back to the operating room. A spinal anesthestic was then administered. The feet were wrapped with cast padding and Coban and then placed into the boot liners and then into the boots. Care was taken to protect the skin and make sure the heels were fully down and the boots were stable. The patient was then positioned onto the HANA table. Both legs were held in a neutral position. SCDs were applied. The patient was then slid down onto a peroneal post. A preoperative AP pelvis was obtained to serve as a reference for determining leg lengths. Prophylactic antibiotics in the form of Cefazolin were administered. 1g of Tranxemic Acid was given intravenously within 30 minutes of incision. The left leg was then prepped with Chloraprep and draped in a standard fashion. A second prep with Chloraprep was performed prior to placement of a shower-curtain type drape with Iodine impregnated skin protection. A timeout to confirm correct identity, side and site, procedure, allergies, anesthesia, and medical concerns was performed. An obliquely oriented incision was made starting lateral to the ASIS and running distal over the Tensor Fascia Shelly (TFL) muscle belly toward the fibular head, approximately 10cm. The skin and soft tissue was dissected sharply, through Sujey?s fascia, and to the fascia of the TFL. With the fascia and superior border of the IT band identified, the fascia was incised with a new knife just above any perforators from the IT band. The TFL muscle belly was bluntly dissected away from the fascia and moved laterally. The fat between TFL and rectus was identified to ensure the dissection was not within the TFL. Blunt dissection created space between abductors and the capsule and retractor was placed over the lateral femoral neck. The fibers of the rectus femoris tendon were identified and these were freed from the anterior capsule. A second cobra retractor was placed around the medial femoral neck. The TFL was further retracted laterally to show the deep fascia. Careful dissection through this layer identified three main crossing vessels of the lateral femoral circumflex. These were cauterized in multiple locations and then cut without any noticeable bleeding. The TFL was further released bluntly from the deep fascia to expose anterior hip capsule and fat The Chris orthopaedic retractor was then placed beneath the TFL and against sartorius and medial soft tissues to protect and retract the soft tissues. A T-capsulotomy was then performed starting at the superior lateral acetabulum and moving distally to the intertrochanteric ridge. These capsular flaps were tagged with a No. 1 Ethibond and elevated from within. The capsular flaps were released to the shoulder of the lateral neck and to the lesser trochanter to give excellent visualization of the proximal femur. A neck osteotomy was performed using an oscillating saw based on preoperative templates. This cut started in the shoulder and of the lateral neck and exited medially. The saw was at all times directed medially to avoid injury to the greater trochanter. Gentle traction was applied to the leg and the osteotomy opened. The femoral head was removed with a corkscrew, making sure to protect the TFL on its exit. Traction was released after head removal. This was measured on the back table to determining the starting reamer size. Portions of the rectus obscuring visualization were minimally elevated off the superior acetabulum. An anterior retractor was placed over the anterior wall between capsule and labrum and attached to the Gripper retraction system. A posterior retractor was placed similarly. This provided excellent visualization. The contents of the cotyloid fossa were removed with electrocautery and the labrum was removed with a knife. There was a notable floor osteophyte. There was significant chondromalacia of the superior acetabulum and large osteophytes around the inferior and posterior acetabulum. Acetabular reaming began with a 46mm reamer. This first reaming was directed anterior to posterior and medial to get down to the true floor. This was inspected and reamed until the true floor was reached. The anterior retractor was then released and entry and exit was provided by traction on the capsular flaps. I then reamed sequentially up to a 49mm reamer where good fit was obtained. The larger reamers were oriented based on anatomical reference of the anterior and lateral ham to ensure proper abduction and anteversion. Positioning and size was confirmed with the fluoroscopy. A 50mm Depuy [place] acetabular component was selected. The acetabulum was reamed around the periphery with the selected acetabular size to prevent a rim fit. The deep tissues were irrigated. The acetabular component was then impacted in a position of about 40-45 degrees of abduction and 15-20 degrees of anteversion, using the patient?s anatomy as the ultimate landmark. Fluoroscopy was used to confirm this. There was excellent conduit reamer operator of the acetabular component and the inserting handle was removed. I then used a curved osteotome to remove osteophytes from around the periphery of the component. There were large inferior and posterior osteophytes which were removed with capsular attachments released. The acetabular liner, Depuy [id number] polyethylene liner, was inserted and lined up with the tines of the acetabular component. There was no soft tissue interposition. The liner was then impacted into position and confirmed to be well-seated. A portion of the garret-articular cocktail was then injected around the acetabulum into the capsule and periosteum. This cocktail consisted of 50cc of 0.25% Bupivicaine and 20cc of Exparel along with 30cc of Ketorolac. The leg was rotated to 120 degrees. Any remaining medial capsule was released until the lesser trochanter was easily palpable. A Jay retractor was placed medially. The lateral capsule was further released into the shoulder to allow access to the greater trochanter. A Jay retractor was placed over the greater trochanter which allowed the trochanter to flip in front of the capsule for excellent exposure. The leg was brought down into maximal extension and 20 degrees of adduction while ensuring there was no impingement on the acetabulum. Any remnant capsule within the trochanter was released. Piriformis and obturator externis were identified and protected. There was excellent access to the proximal femur. The lateral neck remnant was removed with a rongeur. A blunt canal probe was used to identify the canal and trajectory for later broaching. A box osteotome initiated the broach course. A small curved rasp and a curved curette were used to work laterally. Broaching then began with a size 8 Corail broach. This was inserted manually around the trochanter and into the canal before mallet blows. The broach was seated to the neck cut levela few millimeters below the cut level based on the neck cut and the preoperative template. Sequential broaching was continued with the Compression Kinetics pneumatic broaching device until a tight fit was obtained with good rotational control of the femur. A trial standard 125 neck was inserted along with a +5 trial head. The leg was brought out of extension and adduction and then reduced with traction and internal rotation. The leg was stable anteriorly in a position of 30 degrees of extension and 90 degrees of external rotation. Fluoroscopy was used to ensure there was no fracture and the stem was seated well. Leg lengths were checked with an AP pelvis and pelvic reference points. Fundbase navigation system was used to confirm appropriate positioning and leg length and offset. There was under offset and leg length which would be corrected with the high offset +1. Once content with the desired offset and leg lengths, the leg was brought back into extension, external rotation and adduction. The periosteum and surrounding tissue was injected with remaining portion of the garret-articular cocktail. The proximal femur was irrigated as well as the deep tissues. The Depuy Corail high offset collared stem, size 14, was then manually inserted into the proximal femur making sure to control rotation. It was then malleted into position with light blows, giving breaks to allow bone expansion and decrease risk of fracture. The selected Depuy Altrx Ceramic Head, size 32+1mm, was then placed onto the clean and dry trunnion and secured with impaction onto the tapered fit. The leg was brought back out of extension and adduction and reduced with traction and internal rotation. Stability was confirmed with no shuck at 90 degrees of external rotation and 30 degrees of extension. No impingement through range of motion arc. Final x-ray images were obtained with fluoroscopy to confirm adequate positioning and no intraoperative fracture. The deep tissues were thoroughly irrigated with Irrisept chlorhexadine solution. The second dose of TXA 1g was administered intravenously.The capsule was then reapproximated with the previously placed Ethibond sutures as well as #1 vicryl. The TFL fascia was finally closed with a No. 2 Stratafix, barbed suture. Deep tissues were then reapproximated with 0 Vicryl and a running 2-0 Vicryl. The skin was closed with a running 4-0 Monocryl in a subcuticular fashion. This was reinforced with skin glue. A Mepilex silver dressing was applied. At the end of the case, all counts were correct. Darvin was transferred to the hospital bed without difficulty and suffering no apparent complication. Darvin has a good prognosis. Physical therapy will start today and without restrictions, weight-bearing as tolerated. Aspirin 81mg BID will be used for DVT prophylaxis.
--- NOTE | 2020-03-20 11:17 | PT.INIE ---
Date of service: 03/20/20 Time of Service: 11:17 PT Notes Visit Reasons: L HIP DJD Physical Therapy Inpatient Initial Evaluation Date: 03/20/2020 Referring Doctor: VALENTÍN Ventura PT Orders: PT CONSULT: Status post Ortho surgery Precautions: Fall. Standard. WBAT on left LE. Patient Profile/Admitting Diagnosis: Darvin is a 72-year-old female with primary unilateral osteoarthritis of the left hip and is status post left total hip arthroplasty on postoperative day 0. 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 Independent with all aspects of ADLs prior to surgery. Equipment Owned/DME: Fonrt-Wheeled walker, small-based quad cane Subjective: Reports mild lightheadedness in sitting and during ambulation activity. Also stated that she feels tired as she did not sleep well last night. Agreeable to being seen again later this afternoon after lunch for stairs training prior to discharge. Denies headache and chest pain throughout session. Did report some soreness in the left hip with weight bearing. Objective: General Observation: Nurse Yamilka present through most of evaluation. Supine on stretcher. Mepilex Ag over surgical incision. Cold pack over surgical incision. Mental Status: Alert and orieted x 4 Pain: 1-2/10 in the L hip Vital Signs: BP softened a little bit from 110 to 94 mmHg systolically with upright positioning but patient felt better with rest ROM: Right Upper Extremity: Shoulder Flexion WFL. Shoulder abduction WFL. Elbow flexion WFL. Wrist flexion WFL. Opening and closing of hand WFL. Left Upper Extremity: Shoulder Flexion WFL. Shoulder abduction WFL. Elbow flexion WFL. Wrist flexion WFL. Opening and closing of hand WFL. Right Lower Extremity: Hip flexion WFL. Hip abduction WFL. Knee flexion WFL. Ankle dorsiflexion WFL. Ankle plantarflexion WFL. Left Lower Extremity: Hip flexion WFL. Hip abduction WFL. Knee flexion about 20 to 100 degrees. Tension -20 degrees. Ankle dorsiflexion WFL. Ankle plantarflexion WFL. Strength: Right Upper Extremity: Shoulder flexors 4/5. Shoulder abductors 4/5. Elbow flexors 4/5. Elbow extensors 4/5. Network Field Engineer strong. Left Upper Extremity: Shoulder flexors 4/5. Shoulder abductors 4/5. Elbow flexors 4/5. Elbow extensors 4/5. Network Field Engineer strong. Right Lower Extremity: Hip flexors 5/5. Hip abductors 5/5. Knee flexors 5/5. Knee extensors 5/5. Ankle dorsiflexors 5/5. Ankle plantarflexors 5/5. Left Lower Extremity:Hip flexors 4-/5. Hip abductors 4-/5. Knee flexors 3-/5. Knee extensors 3-/5. Ankle dorsiflexors 5/5. Ankle plantarflexors 5/5. Sensation: Intact as to pain and pressure on bilateral lower extremities. Bed Mobility/Transfers: Rolling standby assist Supine to sit standby assist Sit to supine standby assist Sit to stand contact-guard assist Stand to sit contact-guard assist Bed to chair contact-guard assist Chair to bed contact-guard assist Gait: 100 feet using front wheeled walker with contact-guard assist with step through gait pattern. Reported fatigue and mild lightheadedness at the end of activity. Balance: Static Sitting: Normal Dynamic Sitting: Normal Static Standing: Fair Dynamic Standing: Fair Special Tests: Mobility Limitations Standardized Measure [facility] 6 clicks Basic Mobility Inpatient Short Form: Raw Score: 20 CMS Score: 36% deficit Informed Consent/Education: Patient instructed in purpose of PT consult and plan of care. Education and training provided for safe use of FWW for all mobility ADL performance. Assessment: Darvin mobility decline requiring the use of a front wheeled walker for all mobility ADL performance, decreased activity tolerance, impairment in balance, and increased risk for falls due to postoperative status. Darvin is a 72-year-old female with primary unilateral osteoarthritis of the left hip and is status post left total hip arthroplasty on postoperative day 0. Patient presents with clinical signs and symptoms consistent with current/admitting diagnoses that have resulted to mobility limitations, gait instability, generalized weakness, and impairment of motor control as demonstrated by the following impairment level findings: 1. Decreased strength to left knee extensors 2. Impaired standing balance 3. Impaired activity tolerance 4. Limitation of joint range of motion in L knee Impairments are contributing to the following functional limitations: 1. Inability to safely ambulate without assistive device and physical assistance 2. Increase completion time for mobility ADL performance 3. Increased fall risk 4. Inability to negotiate steps alone safely Patient is assessed as a 97379 moderate complexity based on the following: History: 79-year-old female with impairment level findings, functional limitations, and past medical history as indicated above Examination: Demonstrable impairment in strength, balance, and mobility level with underlying impairments and functional limitations as documented above Presentation:Evolving Decision Makin moderate complexity Goals: Goals X 1-2 more treatment sessions 1. Supine-Sit supervision 2. Sit-Supine supervision 3. Sit-Stand supervision 4. Stand-Sit supervision 5. Bed-Chair supervision 6. Chair-Bed supervision 7. Standby assist gait on level surface with use of least restrictive device for at least 300 feet without report of pain nor dyspnea 8. Standby assist stair negotiation while holding onto bilateral rails for at least 10 steps without report of pain nor dyspnea Plan of Care/Treatment Plan: 1-2 more treatment sessions. Plan of care has been reviewed with the METALLOGRAPHER providing the service under Physical Therapy direction. Initiate Physical Therapy intervention for strengthening, bed mobility, transfers, gait, stairs, balance training, use of assistive device. DISCHARGE RECOMMENDATIONS: Home when medically cleared by orthopedic surgeon. Outpatient physical therapy services in 2 weeks. No equipment needs at this time. TREATMENT CODE/TIME: 92699 x 25 minutes, 26810 x 23 minutes beginning at 11:17 AM. Thank you for the opportunity to participate in the care of this patient. Freya Lake PT, DPT, CLT [facility] [place], [place]
--- NOTE | 2020-03-20 13:47 | NUR.NOTE ---
district manager primary care sales Patricia Contreras notified of need for home health and physical therapy. Nursing Note:
--- NOTE | 2020-03-20 14:10 | PT.INDS ---
Date of service: 03/20/20 Time of Service: 14:10 PT Notes Visit Reasons: L HIP DJD Physical Therapy Inpatient Discharge Summary Date: 03/20/2020 Date of service: 03/20/2020 only Referring Doctor: VALENTÍN Ventura PT Orders: PT CONSULT: Status post Ortho surgery Precautions: Fall. Standard. WBAT on left LE. Patient Profile/Admitting Diagnosis: Darvin is a 72-year-old female with primary unilateral osteoarthritis of the left hip and is status post left total hip arthroplasty on postoperative day 0. 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 Independent with all aspects of ADLs prior to surgery. Equipment Owned/DME: Fonrt-Wheeled walker, small-based quad cane Subjective: Feels a lot better this afternoon. Agreeable to walking to the stairs and trying out with the flight of steps for this session. Objective: General Observation: Nurse Yamilka present through most of evaluation. Supine on stretcher. Mepilex Ag over surgical incision. Cold pack over surgical incision. Mental Status: Alert and oriented x 4 Pain: 1-2/10 in the L hip ROM: Right Upper Extremity: Shoulder Flexion WFL. Shoulder abduction WFL. Elbow flexion WFL. Wrist flexion WFL. Opening and closing of hand WFL. Left Upper Extremity: Shoulder Flexion WFL. Shoulder abduction WFL. Elbow flexion WFL. Wrist flexion WFL. Opening and closing of hand WFL. Right Lower Extremity: Hip flexion WFL. Hip abduction WFL. Knee flexion WFL. Ankle dorsiflexion WFL. Ankle plantarflexion WFL. Left Lower Extremity: Hip flexion WFL. Hip abduction WFL. Knee flexion about 20 to 100 degrees. Tension -20 degrees. Ankle dorsiflexion WFL. Ankle plantarflexion WFL. Strength: Right Upper Extremity: Shoulder flexors 4/5. Shoulder abductors 4/5. Elbow flexors 4/5. Elbow extensors 4/5. Pharmacy Operations Specialist strong. Left Upper Extremity: Shoulder flexors 4/5. Shoulder abductors 4/5. Elbow flexors 4/5. Elbow extensors 4/5. Pharmacy Operations Specialist strong. Right Lower Extremity: Hip flexors 5/5. Hip abductors 5/5. Knee flexors 5/5. Knee extensors 5/5. Ankle dorsiflexors 5/5. Ankle plantarflexors 5/5. Left Lower Extremity:Hip flexors 4-/5. Hip abductors 4-/5. Knee flexors 3-/5. Knee extensors 3-/5. Ankle dorsiflexors 5/5. Ankle plantarflexors 5/5. Sensation: Intact as to pain and pressure on bilateral lower extremities. Bed Mobility/Transfers: Rolling supervision Supine to sit supervision Sit to supine supervision Sit to stand supervision Stand to sit supervision Bed to chair supervision Chair to bed supervision Gait: 100 feet x 2 using front wheeled walker with standby assist with step through gait pattern. Reported fatigue and mild lightheadedness at the end of activity. Up-and-down 26 4 inch steps using single-point cane with 1 hand and holding onto the rail with the other hand requiring contact-guard assist with step?to pattern. Balance: Static Sitting: Normal Dynamic Sitting: Normal Static Standing: Fair Dynamic Standing: Fair Assessment: Darvin demonstrates functional mobility decline requiring the use of a front wheeled walker for all mobility ADL performance, decreased activity tolerance, impairment in balance, and increased risk for falls due to postoperative status. Darvin is a 72-year-old female with primary unilateral osteoarthritis of the left hip and is status post left total hip arthroplasty on postoperative day 0. Patient presents with clinical signs and symptoms consistent with current/admitting diagnoses that have resulted to mobility limitations, gait instability, generalized weakness, and impairment of motor control as demonstrated by the following impairment level findings: 1. Decreased strength to left knee extensors 2. Impaired standing balance 3. Impaired activity tolerance 4. Limitation of joint range of motion in L knee Impairments are contributing to the following functional limitations: 1. Inability to safely ambulate without assistive device 2. Increase completion time for mobility ADL performance 3. Increased fall risk 4. Inability to negotiate steps alone safely Goals: Goals X 1-2 more treatment sessions 1. Supine-Sit supervision MET 2. Sit-Supine supervision MET 3. Sit-Stand supervision MET 4. Stand-Sit supervision MET 5. Bed-Chair supervision MET 6. Chair-Bed supervision MET 7. Standby assist gait on level surface with use of least restrictive device for at least 300 feet without report of pain nor dyspnea MET 8. Standby assist stair negotiation while holding onto bilateral rails for at least 10 steps without report of pain nor dyspnea MET DISCHARGE RECOMMENDATIONS: Home when medically cleared by orthopedic surgeon. Outpatient physical therapy services in 2 weeks. No equipment needs at this time. TREATMENT CODE/TIME: 36885 x 30 minutes beginning at 14:10 PM. Thank you for the opportunity to participate in the care of this patient. Freya Lake PT, DPT, CLT [facility] [place], [place]
--- NOTE | 2020-03-20 14:35 | CMPROGNOTE_ITS ---
Care Management Progress Note CM consulted to coordinate VNA orders, CM faxed orders to [facility]. PT recommended FWW, which was provided to patient as well.
--- NOTE | 2020-03-20 16:46 | PDOC.CMPRO ---
- If Service Date Differs Date of service: 03/20/20 Time of Service: 16:46 Care Management Progress Note CM meets with Darvin at the request of day surgery RN to discuss Advance Directives and prescription costs. Darvin, who just had hip surgery, advises she does not have a prescription plan and is unable to pay for the prescriptions. CM contacts [facility] who is able to cover the cost of four out of the five prescriptions sent to the pharmacy for Darvin today. CM telephones patient to let her know the prescriptions have been paid for and to advise her the cost of the Oxycodone is $6.65 and she will need to pay out of pocket for that one prescription.
== END 2020-03-20 16:16 | disposition home or self-care (01) ==
PROVIDERS: Admitting Provider Student in an Organized Health Care Education/Training Program; PCP General Practice; Visit Provider Student in an Organized Health Care Education/Training Program
PROC: 0SRB04A Replacement of Left Hip Joint with Ceramic on Polyethylene Synthetic Substitute, Uncemented, Open Approach (ICD-10-PCS; CPT 27130; principal; 2020-03-20 07:30)
DX: M16.12 Unilateral primary osteoarthritis, left hip (principal); M25.552 Pain in left hip
CPT/HCPCS: 27130; 20985; C1776; 97162; 97530; NC; 73501; J0690; J1885; J2001; J2250; J2405

== ENCOUNTER 2020-04-05 10:24 | Outpatient (CLI) | payer MEDICARE, SELFPAY ==
--- NOTE | 2020-04-05 09:45 | DI.RAD_ITS ---
EXAM: XR HIP LT COMPLETE AP PELVIS CLINICAL HISTORY: 1st post op. TECHNIQUE: 2D digital imaging was performed. COMPARISON: CR XR PELVIS AP from 03/14/2020 FINDINGS: Normal position alignment of the components of the newly placed prosthesis of the left hip. No fract ure or loosening evident. IMPRESSION: Satisfactory appearance. DATA REPOSITORY: RADIATION DOSE DELIVERED:
== END 2020-04-05 10:44 ==
PROVIDERS: PCP General Practice; Referring Provider General Practice; Visit Provider Student in an Organized Health Care Education/Training Program
DX: Z96.642 Presence of left artificial hip joint (principal); Z47.1 Aftercare following joint replacement surgery
CPT/HCPCS: 73502

== ENCOUNTER → 2020-05-03 11:38 | Outpatient (BNVA) | payer MEDICARE, SELFPAY | PROVIDERS: PCP General Practice; Referring Provider General Practice; Visit Provider Student in an Organized Health Care Education/Training Program | DX: Z96.642 Presence of left artificial hip joint (principal); Z47.1 Aftercare following joint replacement surgery ==

== ENCOUNTER 2021-03-21 14:17 | Outpatient (CLI) | payer MEDICARE, SELFPAY ==
--- NOTE | 2021-03-21 10:30 | DI.RAD_ITS ---
Exam(s) XR HIP LT AP LAT ONLY EXAM: XR HIP LT AP LAT ONLY CLINICAL HISTORY: ANNUAL F/U L DOUGLAS. TECHNIQUE: 2D digital imaging was performed. COMPARISON: CR XR HIP LT COMPLETE AP PELVIS from 04/05/2020 FINDINGS: There is continued stable appearance of the components of the left hip prosthesis. No fracture or lo osening evident. No radiographic evidence of osteomyelitis. IMPRESSION: DATA REPOSITORY: RADIATION DOSE DELIVERED:
== END 2021-03-21 14:18 | disposition home or self-care (01) ==
LOC: DIORS 14:18
PROVIDERS: PCP General Practice; Referring Provider General Practice; Visit Provider Student in an Organized Health Care Education/Training Program
DX: Z96.642 Presence of left artificial hip joint (principal); Z47.1 Aftercare following joint replacement surgery
CPT/HCPCS: 99212; 73502

== ENCOUNTER 2024-01-14 00:25 | Emergency (ER) | payer MEDICARE, SELFPAY ==
[2024-01-14] VITALS (42 sets, daily range): BP systolic 75–132; BP diastolic 33–63; PULSE 61–98; RESP 8–22; TEMP 36; O2SAT 85–100
--- NOTE | 2024-01-14 00:15 | RT.EKG_ITS ---
APPROVED REPORT Exam: Resting ECG Reason for Exam: syncope Patient Location: E HR:64 bpm ECG Measurements Heart Rate 64 AXIS TX 172 P 51 QRSd 96 QRS 9 QT 434 T 63 QTc 449 Conclusion Sinus rhythm...normal P axis, V-rate 60- 99 Low voltage, extremity leads...all extremity leads <0.5mV appropriate intervals no ST segment or T wave abnormalities to suggest occlusive HI
[2024-01-14] MEDS: Normal Saline 250 ML 500 ML IV (00:50)
[2024-01-14 00:53] LABS: Lactate 1.3 mmol/L (0.6-1.4)
[2024-01-14 00:57] LABS: Abs Immature Grans 0.09 10^3/uL (0.0-0.06); Basophils % 0.2 %; Eosinophils % 0.1 %; HCT 34.6 % (36.0-46.0); HGB 11.4 g/dL (11.2-15.7); Immature Grans % 0.5 %; Lymphocytes % 5.4 %; MCH 30.5 pg (27.0-33.0); MCHC 32.9 % (32.0-36.0); MCV 93 fL (80-95); MPV 9.6 fL (8.0-11.0); Monocytes % 5.4 %; Neutrophils % 88.4 %; Platelet Count 189 10^3/uL (130-400); RBC 3.74 10^6/uL (3.93-5.22); RDW 13.3 % (11.7-14.6); RDW-SD 45.1 fL; WBC 17.94 10^3/uL (4.4-10.8)
[2024-01-14 00:58] LABS: Absolute Basophil Count 0.04 10^3/uL (0.0-0.2); Absolute Eosinophil Count 0.02 10^3/uL (0.0-0.7); Absolute Lymphocyte Count 0.97 10^3/uL (1.2-3.4); Absolute Monocyte Count 0.97 10^3/uL (0.1-0.8); Absolute Neutrophil Count 15.86 10^3/uL (1.2-6.7)
[2024-01-14 01:25] LABS: ALT 24 U/L (14-59); AST 22 U/L (15-37); Albumin 3.1 g/dL (3.4-5.0); Alkaline Phosphatase 60 U/L (46-116); Anion Gap 7.3 mmol/L (3-11); BUN 19 mg/dL (7-18); Bilirubin, Total 0.91 mg/dL (0.2-1.0); CO2 26.7 mmol/L (21.0-32.0); Calcium 8.9 mg/dL (8.5-10.1); Chloride 100 mmol/L (98-107); Glucose 154 mg/dL (74-106); Magnesium 1.6 mg/dL (1.8-2.4); NT-proBNP 381 pg/mL (<300); Potassium 3.7 mmol/L (3.5-5.1); Sodium 134 mmol/L (136-145); Total Protein 6.5 g/dL (6.4-8.2); Troponin I 8 ng/L (<or=51)
[2024-01-14] MEDS: Magnesium Gluconate 500 MG TAB 1000 MG PO (01:45)
--- NOTE | 2024-01-14 01:55 | W.ED.GENAD ---
Discharge Plan Disposition Patient Disposition: Home Condition: Good Discharge Details Clinical Impression: Acute UTI, Orthostatic hypotension Primary Care Provider: Terry Andrade ED Provider: Tiana Steinberg Home Meds and New Rx's Prescriptions: New cephalexin 250 mg capsule 250 mg PO Q6H Qty: 20 0RF Continued (DME) Raised Toilet Seat See Rx Instructions .ROUTE .MEDSUPPLY Qty: 1 0RF Rx Instructions: As directed (DME) Shower Chair See Rx Instructions .ROUTE .MEDSUPPLY Qty: 1 0RF Rx Instructions: As directed acetaminophen 500 mg tablet 500 mg PO Q6H PRN (Reason: pain) Qty: 60 2RF Discharge Instructions Instructions: Orthostatic hypotension, Urinary Tract Infection, Adult ED Additional Instructions: Make sure you eat and drink at each mealtime. Try to stay hydrated. Take the antibiotic every 6 hours for the next 5 days. Call your primary care doctor today to schedule an appointment for within the next 48 hours to followup on your visit here. Return to the emergency department for new or worsening symptoms including fever, flank pain, lightheadedness, if you are unable to eat and drink, or if you have any other concerns. Referrals: Terry Andrade [Primary Care Provider] - [facility] General Mode of arrival: EMS. Date/Time Provider Initiated Documentation: 01/14/24 00:35. Limitations to Documentation: no limitations. Information obtained by: patient. HPI Narrative: 83yo previously healthy F presenting after near syncopal episode. witnessed her get up to go to the bathroom; while in the bathroom she became unsteady and leaned on the wall, sliding down to the floor. Did not strike her head or lose consciousness. She was not initially responding to him but within in a minute or two would answer his questions. No abnormal movements noted. Patient feels back to normal now and states she seems like her usual self. She reports that she felt lightheaded just before she fell. Minimal PO intake yesterday, just a few grapes, states she did not feel like eating. No nausea, vomiting, or abodminal pain. No chest pain or shortness of breath at any point. No headache, neck pain, numbness, tingling, weakness, vertigo, or vision changes. Otherwise in her usual state of health with no fevers, chills, rash, dysuria, hematuria, diarrhea, constipation, bloody stool, URI symptoms, or other concerns. Related Data Home Medications ?Medication ?Instructions ?Recorded ?Confirmed Raised Toilet Seat #1 03/19/20 03/21/21 Shower Chair #1 03/19/20 03/21/21 acetaminophen 500 mg tablet 500 mg PO Q6H PRN pain #60 tabs 03/20/20 01/14/24 cephalexin 250 mg capsule 250 mg PO Q6H #20 caps 01/14/24 Previous Rx's ?Medication ?Instructions ?Recorded Raised Toilet Seat #1 03/19/20 Shower Chair #1 03/19/20 acetaminophen 500 mg tablet 500 mg PO Q6H PRN pain #60 tabs 03/20/20 cephalexin 250 mg capsule 250 mg PO Q6H #20 caps 01/14/24 Allergies Allergy/AdvReac Type Severity Reaction Status Date / Time codeine AdvReac Mild Nausea Verified 01/14/24 03:41 latex AdvReac Mild Other (See Verified 01/14/24 03:41 Comment) General Stated Complaint: [id number] MIKAL: 3 Review of Systems Narrative: see HPI Exam Narrative Exam Narrative: GENERAL: Alert, no distress. SKIN: Warm and well perfused. No rashes, bruises, discolorations or abrasions. HEAD: Atraumatic, normocephalic without edema, discoloration or evidence of trauma. EYES: PERRL. No scleral icterus or conjunctival injection. Extraocular muscles intact without nystagmus or diplopia. EARS: No hemotympanum. NOSE: No discharge, tenderness, laxity. No nasal septal hematoma. MOUTH: No malocclusion or trismus. Moist mucus membranes without blood. NECK: Trachea midline. No discolorations or edema. CV: Regular rate and rhythm, Normal s1 and s2. No murmurs, rubs, or gallops. PV: Radial pulses 2+ bilaterally and symmetric. 2+ capillary refill. No extremity edema. CHEST: No abrasions or ecchymosis. Chest symmetric with respirations. No chest wall tenderness. ABDOMEN: No ecchymosis or abrasions. Soft, nondistended, nontender. BACK: No abrasions, skin openings, or ecchymosis. Spine without bony tenderness, no step offs. PELVIC: Pelvis stable, nontender to lateral compression MSK: No gross deformities or discolorations or lesions. Tolerates full range of motion of extremities without tenderness. Neuro: ? GCS 15.? PERRL.? EOMI.? Fluent speech, no dysarthria. Motor- 5/5 strength symmetric bilateral upper and lower extremities including shoulder abductors/adductors, elbow flexors/extensors, wrist flexors/extensors, finger abductors/adductors, hipflexors/extensors, knee flexors/extensors, ankle dorsiflexors and planter flexors. Sensation- ?Intact to light touch and symmetric multiple dermatomes including upper and lower extremities Coordination- No dysmetria on finger to nose Gait/station: ?Normal stance.? No truncal ataxia. Steady gait with equal normal steps CRANIAL NERVES: II: Pupils equal and reactive, III, IV, : EOM intact, no gaze preference or deviation, no nystagmus. V: normal sensation in V1, V2, and V3 segments bilaterally VII: no asymmetry, no nasolabial fold flattening VIII: normal hearing to speech IX, X: normal palatal elevation, no uvular deviation XI: 5/5 head turn and 5/5 shoulder shrug bilaterally XII: midline tongue protrusion Course Vital Signs Vital signs: Vital Signs Temperature 36.0 C L 01/14/24 00:25 Pulse 64 01/14/24 00:25 Respiratory Rate 18 01/14/24 00:25 Blood Pressure 105/48 L 01/14/24 00:25 Pulse Oximetry 98 01/14/24 00:25 Temperature 36.0 C L 01/14/24 00:25 Temperature Source Temporal Artery Scan 01/14/24 00:25 Pulse 64 01/14/24 00:25 Respiratory Rate 18 01/14/24 00:25 Blood Pressure 105/48 L 01/14/24 00:25 Blood Pressure Position Sitting 01/14/24 00:25 Pulse Oximetry 98 01/14/24 00:25 Oxygen Delivery Method Room Air 01/14/24 00:25 Oxygen Flow Rate 0 01/14/24 00:25 Lab/Test Results Lab/Test Results: Laboratory Tests Range/Units 01/14/24 00:46 WBC (4.4-10.8) 10^3/uL 17.94 H RBC (3.93-5.22) 10^6/uL 3.74 L Hgb (11.2-15.7) g/dL 11.4 Hct (36.0-46.0) % 34.6 L MCV (80-95) fL 93 MCH (27.0-33.0) pg 30.5 MCHC (32.0-36.0) % 32.9 RDW (11.7-14.6) % 13.3 Plt Count (130-400) 10^3/uL 189 MPV (8.0-11.0) fL 9.6 Immature Gran % % 0.5 Neutrophils % % 88.4 Lymphocytes % % 5.4 Monocytes % % 5.4 Eosinophils % % 0.1 Basophils % % 0.2 Nucleated RBC % (0.0-0.3) % 0.0 Absolute Neutrophils (1.2-6.7) 10^3/uL 15.86 H Absolute Lymphocytes (1.2-3.4) 10^3/uL 0.97 L Absolute Monocytes (0.1-0.8) 10^3/uL 0.97 H Absolute Eosinophils (0.0-0.7) 10^3/uL 0.02 Absolute Basophils (0.0-0.2) 10^3/uL 0.04 VBG Lactate (0.6-1.4) mmol/L 1.3 Sodium (136-145) mmol/L 134 L Potassium (3.5-5.1) mmol/L 3.7 Chloride (98-107) mmol/L 100 Carbon Dioxide (21.0-32.0) mmol/L 26.7 Anion Gap (3-11) mmol/L 7.3 BUN (7-18) mg/dL 19 H Creatinine (0.55-1.02) mg/dL 1.0 Est GFR (CKD-EPI 2020) (mL/min/1.73m2) 56.60 Glucose (74-106) mg/dL 154 H Calcium (8.5-10.1) mg/dL 8.9 Magnesium (1.8-2.4) mg/dL 1.6 L Total Bilirubin (0.2-1.0) mg/dL 0.91 AST (15-37) U/L 22 ALT (14-59) U/L 24 Alkaline Phosphatase (46-116) U/L 60 Troponin I (<or=51) ng/L 8 NT-Pro-B Natriuret Pep (<300) pg/mL 381 H Total Protein (6.4-8.2) g/dL 6.5 Albumin (3.4-5.0) g/dL 3.1 L Medical Decision Making 83yo previously healthy F presenting after near syncopal episode. Got up to the bathroom, felt lightheaded, and slid along the wall to the floor. No LOC. No HS. Not on AC. Yesterday decreased PO just didn't feel like it but no other clear symptoms, otherwise in her usual state of health. Vital signs and physical exam reassuring on arrival, normal neurologic exam. Not suggestive of CVA, seizure, no traumatic findings on exam; no indication for CT imaging. No tachycardia, hypoxia, chest pain, shortness of breath, or pleuritc pain to suggest pulmonary embolism. Broad differential for near-syncope in this well seeming 83yo; will evaluate further with EKG, labs. EKG NSR, appropriate intervals, no ST segment or T wave abnormalities to suggest occlusive AL. Labs reviewed as below, CBC with marked leukocytosis to 17.9 (nonspecific) and no anemia, CMP reassuring with no actionable abnormalities, Mg slightly low at 1.6 (oral repletion ordered) unlikely cause of near syncope with normal QT on EKG, troponin 8, 11, 9. UA suggestive of UTI, likely cause of leukocytosis. Will give IV ceftriaxone here. Not septic. Orthostatic vitals +; will give a total of 2L IVFB. Suspect near syncope in the setting of orthostatis with decreased PO intake and UTI. Will reassess orthostatics after fluid completed; if reassuring and patient able to ambulate safety would discharge home on PO cephalexin. Planned EMR downtime approaching; further charting will be in paper record. Lab Data Lab results reviewed: Yes I reviewed the patient's lab results. Labs: 01/14/24 02:23 Urine - Reflex from Ua Urine Culture - Pending Laboratory Tests Range/Units 01/14/24 01/14/24 01/14/24 00:46 01:30 02:23 WBC (4.4-10.8) 10^3/uL 17.94 H RBC (3.93-5.22) 10^6/uL 3.74 L Hgb (11.2-15.7) g/dL 11.4 Hct (36.0-46.0) % 34.6 L MCV (80-95) fL 93 MCH (27.0-33.0) pg 30.5 MCHC (32.0-36.0) % 32.9 RDW (11.7-14.6) % 13.3 Plt Count (130-400) 10^3/uL 189 MPV (8.0-11.0) fL 9.6 Immature Gran % % 0.5 Neutrophils % % 88.4 Lymphocytes % % 5.4 Monocytes % % 5.4 Eosinophils % % 0.1 Basophils % % 0.2 Nucleated RBC % (0.0-0.3) % 0.0 Absolute Neutrophils (1.2-6.7) 10^3/uL 15.86 H Absolute Lymphocytes (1.2-3.4) 10^3/uL 0.97 L Absolute Monocytes (0.1-0.8) 10^3/uL 0.97 H Absolute Eosinophils (0.0-0.7) 10^3/uL 0.02 Absolute Basophils (0.0-0.2) 10^3/uL 0.04 VBG Lactate (0.6-1.4) mmol/L 1.3 Sodium (136-145) mmol/L 134 L Potassium (3.5-5.1) mmol/L 3.7 Chloride (98-107) mmol/L 100 Carbon Dioxide (21.0-32.0) mmol/L 26.7 Anion Gap (3-11) mmol/L 7.3 BUN (7-18) mg/dL 19 H Creatinine (0.55-1.02) mg/dL 1.0 Est GFR (CKD-EPI 2020) (mL/min/1.73m2) 56.60 Glucose (74-106) mg/dL 154 H Calcium (8.5-10.1) mg/dL 8.9 Magnesium (1.8-2.4) mg/dL 1.6 L Total Bilirubin (0.2-1.0) mg/dL 0.91 AST (15-37) U/L 22 ALT (14-59) U/L 24 Alkaline Phosphatase (46-116) U/L 60 Troponin I (<or=51) ng/L 8 11 NT-Pro-B Natriuret Pep (<300) pg/mL 381 H Total Protein (6.4-8.2) g/dL 6.5 Albumin (3.4-5.0) g/dL 3.1 L Urine Color (Yellow) Yellow Urine Clarity (Clear) Clear Urine pH (5-8) 6.0 Ur Specific [place] (1.005-1.025) >= 1.030 H Urine Protein (Neg-Trace) mg/dL 30 H Urine Ketones (Negative) mg/dL Trace H Urine Blood (Negative) Moderate H Urine Nitrite (Negative) Negative Urine Bilirubin (Negative) Negative Urine Urobilinogen (Up to 0.2) mg/dL 0.2 Ur Leukocyte Esterase (Negative) Trace H Urine RBC (0-2) HPF 3-5 H Urine WBC (0-5) HPF 20-50 H Ur Epithelial Cells (Negative) HPF Few Urine Crystals (Negative) HPF Negative Urine Bacteria (Negative) HPF Few Urine Casts (Negative) LPF 0-2 Hyaline Urine Mucus (Negative) Moderate Urine Other (Negative) Rare Renal Ur Culture Indicated? 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
[2024-01-14 01:58] LABS: Troponin I 11 ng/L (<or=51)
[2024-01-14 02:32] LABS: Bilirubin Negative (Negative); Blood Moderate (Negative); Clarity Clear (Clear); Glucose Negative (Negative); Ketones Trace mg/dL (Negative); Leukocyte Esterase Trace (Negative); Nitrite Negative (Negative); Specific Gravity >= 1.030 (1.005-1.025); Urobilinogen 0.2 mg/dL (Up to 0.2)
[2024-01-14 02:40] LABS: Epithelial Cells Few HPF (Negative); Other Cells Rare Renal (Negative); WBC 20-50 HPF (0-5)
[2024-01-14 02:41] LABS: Bacteria Few HPF (Negative); C & S Indicated? Yes; Casts 0-2 Hyaline LPF (Negative); Crystals Negative HPF (Negative); Mucus Moderate (Negative)
[2024-01-14] MEDS: cefTRIAXone 1 GM/50 ML BAG IVPB (03:00)
[2024-01-14] MEDS: Normal Saline 500 ML 1000 ML IV (03:39)
[2024-01-14] MEDS: Normal Saline 1,000 ML 1000 ML IV (03:39)
[2024-01-14 04:05] LABS: Troponin I 9 ng/L (<or=51)
== END 2024-01-14 08:53 | disposition home or self-care (01) ==
LOC: ER 09:41
PROVIDERS: Emergency Provider Student in an Organized Health Care Education/Training Program; PCP General Practice
DX: I95.1 Orthostatic hypotension; R53.1 Weakness; N39.0 Urinary tract infection, site not specified
CPT/HCPCS: 36416; 80053; 82962; 93005; 96361; 96365; 99284; 81003; 81015; 83605; 83735; 83880; 84484; 85025; 87086; 93010; 99283; J0696

== ENCOUNTER → 2024-06-02 14:33 | Outpatient (BNVA) | payer MEDICARE, SELFPAY | PROVIDERS: PCP General Practice; Referring Provider General Practice; Visit Provider Physician Assistant | DX: M41.9 Scoliosis, unspecified (principal) | CPT/HCPCS: 99213 ==

== ENCOUNTER → 2024-07-25 13:41 | Outpatient (BNVA) | payer MEDICARE, SELFPAY | PROVIDERS: PCP General Practice; Referring Provider General Practice; Visit Provider Student in an Organized Health Care Education/Training Program | DX: M16.11 Unilateral primary osteoarthritis, right hip (principal); M41.9 Scoliosis, unspecified; Z96.642 Presence of left artificial hip joint | CPT/HCPCS: 99213 ==

== ENCOUNTER 2024-08-23 16:48 | Observation (INO) | payer MEDICARE, SELFPAY ==
[2024-08-23] VITALS (102 sets, daily range): BP systolic 109–157; BP diastolic 57–63; PULSE 58–75; RESP 11–29; TEMP 36.6–36.9; O2SAT 84–97
--- NOTE | 2024-08-23 | DI.RAD_ITS ---
Exam(s) XR PORTABLE CHEST AP EXAM: XR PORTABLE CHEST AP CLINICAL HISTORY: Right pneumothorax TECHNIQUE: 2D digital imaging was performed of the chest. One image was obtained. An AP view was ob tained. COMPARISON: CT CT CHEST/ABD/PEL W from 08/23/2024 FINDINGS: MEDIASTINUM: Normal. HEART: Normal. PULMONARY VASCULATURE: Normal. LUNGS: The lungs are hyperinflated with flattened diaphragms suggesting underlying COPD. There is a right basilar infiltrate which may represent atelectasis. PLEURAL SPACE: No significant pleural effusion is seen, though the right costophrenic angle was not i ncluded on this examination. No pneumothorax is seen on this chest x-ray. This may be due to the ve ry small size of a pneumothorax. BONE:Within normal limits for the patient's age. The patient's known rib fractures are best appreciat ed on the CT scan performed the same day. OTHER FINDINGS:Normal. IMPRESSION: 1. Infiltrate in the right lung base which may represent atelectasis. 2. No pneumothorax is seen on this examination. This may be due to the very small size of a pneumoth orax. 3. The preliminary [facility] report was reviewed. DATA REPOSITORY: RADIATION DOSE DELIVERED:
--- NOTE | 2024-08-23 18:30 | DI.CT_ITS ---
Exam(s) CT THORACIC LUMBAR SPINE REC EXAM: CT THORACIC LUMBAR SPINE REC CLINICAL HISTORY: recons TECHNIQUE: COMPARISON: CT CT CHEST/ABD/PEL W from 08/23/2024 FINDINGS: THORACIC SPINAL COLUMN: No evidence of acute fracture of thoracic vertebral bodies. No listhesis. N o significant osseous lesions. Incidentally noted is a benign intraosseous hemangioma in T10 vertebr al body. There is no compression fracture at this level. No facet joint malalignment. No compromis e of the thoracic spinal canal. LUMBOSACRAL SPINAL COLUMN: No evidence of fractures lumbar vertebrae and transverse process is. Ther e is multilevel chronic degenerative disc disease and there is degenerative anterolisthesis L5 upon S 1 but no fracture at this level. No pars defects. No osseous lesions. No sacral fractures evident. Sacroiliac joints appear unremarkable. There is a mild scoliosis convex right. There is a left hi p prosthesis. IMPRESSION: No evidence of acute fractures in the thoracic and lumbosacral spinal columns Please note that chest CT scan reveals displaced right rib fractures involving the right ribs 3 throu gh 8, inclusive. See that separate CT report
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
[2024-08-23 18:57] LABS: Absolute Eosinophil Count 0.02 10^3/uL (0.0-0.7); Absolute Lymphocyte Count 0.55 10^3/uL (1.2-3.4); Basophils % 0.3 %; Eosinophils % 0.1 %; HCT 37.2 % (36.0-46.0); HGB 12.2 g/dL (11.2-15.7); Immature Grans % 0.7 %; Lymphocytes % 3.6 %; MCHC 32.8 % (32.0-36.0); MCV 94 fL (80-95); Neutrophils % 90.3 %; Platelet Count 188 10^3/uL (130-400); RBC 3.94 10^6/uL (3.93-5.22); RDW 13.6 % (11.7-14.6); RDW-SD 46.9 fL; WBC 15.33 10^3/uL (4.4-10.8)
[2024-08-23 18:58] LABS: Absolute Basophil Count 0.05 10^3/uL (0.0-0.2); Absolute Monocyte Count 0.77 10^3/uL (0.1-0.8); Absolute Neutrophil Count 13.84 10^3/uL (1.2-6.7)
[2024-08-23 19:08] LABS: Lipase 19 U/L (<78)
[2024-08-23] MEDS: ACETAMINOPHEN 1,000 MG/100 ML BAG 400 MG IVPB (19:14)
[2024-08-23 19:18] LABS: ALT 47 U/L (14-59); AST 43 U/L (15-37); Albumin 4.1 g/dL (3.4-5.0); Alkaline Phosphatase 71 U/L (46-116); Anion Gap 5.3 mmol/L (3-11); BUN 26 mg/dL (7-18); Bilirubin, Direct 0.1 mg/dL (0.0-0.2); Bilirubin, Total 0.7 mg/dL (0.2-1.0); CO2 28.7 mmol/L (21.0-32.0); CREATININE 0.8 mg/dL (0.55-1.02); Calcium 9.9 mg/dL (8.5-10.1); Chloride 103 mmol/L (98-107); Estimated GFR 73.52 (mL/min/1.73m2); Glucose 138 mg/dL (74-106); Potassium 4.2 mmol/L (3.5-5.1); Sodium 137 mmol/L (136-145); Total Protein 7.8 g/dL (6.4-8.2)
[2024-08-23] MEDS: Lidocaine 5% Patch 1 PATCH TP (19:29)
[2024-08-23] MEDS: Normal Saline - Diluent 50 ML VIAL IJ (19:38)
[2024-08-23] MEDS: Omnipaque 350 MG/ML 100 ML BTL IJ (19:40)
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
[2024-08-24] VITALS (22 sets, daily range): BP systolic 77–160; BP diastolic 50–105; PULSE 47–80; RESP 14–22; TEMP 36.4–37.2; O2SAT 88–99
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
--- NOTE | 2024-08-24 00:05 | DI.VRAD_ITS ---
PROCEDURE INFORMATION: Exam: XR Chest Exam date and time: 08/23/2024 11:40 PM Age: 84 years old Clinical indication: Other: Right pneumothorax TECHNIQUE: Imaging protocol: Radiologic exam of the chest. Views: 1 view. COMPARISON: CT CHEST/ABD/PEL W 08/23/2024 7:37 PM FINDINGS: Lungs: The lungs are hyperaerated. Mild opacity is noted in the lung bases. Pulmonary vessels are not congested. Pleural spaces: No visible pneumothorax on chest radiograph. Heart/Mediastinum: Unremarkable. No cardiomegaly. Bones/joints: Multiple rib fractures on the right are noted, better characterized on CT. IMPRESSION: No visible pneumothorax by chest radiograph. Dictated and Authenticated by: Diego Li MD. Orderin Alfonso Ruth MD
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
[2024-08-24] MEDS: Ketorolac 15 MG/ML VIAL IVP ×3 (01:54→22:33)
[2024-08-24] MEDS: Normal Saline Flush 10 ML SYR IVP ×3 (01:54→21:52)
[2024-08-24 06:34] LABS: HCT 32.8 % (36.0-46.0); HGB 11.2 g/dL (11.2-15.7); MCH 31.1 pg (27.0-33.0); MCHC 34.1 % (32.0-36.0); MCV 91 fL (80-95); MPV 10.6 fL (8.0-11.0); Platelet Count 179 10^3/uL (130-400); RDW 13.7 % (11.7-14.6); RDW-SD 45.7 fL; WBC 8.52 10^3/uL (4.4-10.8)
[2024-08-24 06:41] LABS: Anion Gap 10.4 mmol/L (3-11); BUN 25 mg/dL (7-18); CO2 27.6 mmol/L (21.0-32.0); CREATININE 0.8 mg/dL (0.55-1.02); Calcium 9.2 mg/dL (8.5-10.1); Chloride 101 mmol/L (98-107); Estimated GFR 73.52 (mL/min/1.73m2); Glucose 110 mg/dL (74-106); Potassium 3.8 mmol/L (3.5-5.1); Sodium 139 mmol/L (136-145)
[2024-08-24] MEDS: Heparin 5,000 UNITS/ML VIAL 5000 UNITS SC ×2 (07:25→14:31)
[2024-08-24] MEDS: LIDOCAINE Patch Removal 1 EACH TP (07:38)
--- NOTE | 2024-08-24 08:00 | DI.RAD_ITS ---
Exam(s) XR CHEST 2V PA LATERAL EXAM: XR CHEST 2V PA LATERAL CLINICAL HISTORY: Right sided pneumothorax TECHNIQUE: 2D digital imaging was performed of the chest. Two images were obtained. PA and lateral views were obtained. COMPARISON: CR,XR XR PORTABLE CHEST AP from 08/23/2024 FINDINGS: MEDIASTINUM: Normal. HEART: Normal. PULMONARY VASCULATURE: Normal. LUNGS: The lungs are hyperinflated consistent with underlying COPD. There has been some clearing of the infiltrate in the right lung base. There is linear atelectasis in the left lower lobe. PLEURAL SPACE: There is blunting of the costophrenic angles bilaterally. There is a small right pleu ral effusion. There is blunting of the left costophrenic angle which may represent a small effusion or scarring. There is no evidence of a left pneumothorax. BONE:Within normal limits for the patient's age. The patient's known rib fractures are best apprecia violet on the CT scan. OTHER FINDINGS:Normal. IMPRESSION: 1. No pneumothorax is demonstrated on this chest x-ray. 2. Small right pleural effusion. DATA REPOSITORY: RADIATION DOSE DELIVERED:
[2024-08-24] MEDS: Cyclobenzaprine 10 MG TAB PO ×3 (08:31→21:38)
--- NOTE | 2024-08-24 08:49 | INITIAL_ITS ---
Date of service: 08/24/24 Time of Service: 08:49 Care Management Initial Assmt Initial Assessment Reason for Hospitalization: Rib Fractures Functional Status/Living Situation Patient Presentation: Darvin lives in [facility] with her Osmel. Her daughter Marilyn lives locally and Son Cyrus lives in [facility]. Teto drives and is independent at baseline, she is a retired artist and still enjoys to paint. She is interested in getting more supports into the home and is agreeable to a referral to the [facility]. She is also agreeable to new [facility] services if needed. She may need a provider to follow [facility] orders, since her PCP is homeopathic doctor. CM will follow Town of Residence: [facility] Resides with: Spouse Natural Supports: , children and friend Libertad Employment Status: Retired Instrumental Activities of Daily Living (ADLs): Independent Medications Medication Management: No Issues/Barriers identified Physical Functioning/Mobility Assistive Device: None Advance Directives Advance Directives: Do you have an Advance Directive: N 01/24/20 16:43 AD On File at [facility]: N 01/24/20 16:43 Date Asked 08/23/24 08/23/24 17:17 AD Date Reviewed COLST On File at [facility] COLST Date Scanned Code Status Resuscitation Status Full Code Insurance Coverage/Financial Issues Insurance: BC/BS [facility] - [id number] Care Team Visit Care Team Role Provider Type Terry Andrade Primary Care Provider NON-[facility] STAFF PHYSICIAN Kayla Wiley Other Providers SET MAKING MACHINE OPERATOR Deborah Perla Other Providers SET MAKING MACHINE OPERATOR Savanna Lomeli Other Providers SET MAKING MACHINE OPERATOR Crystal Loving RN Other Providers SET MAKING MACHINE OPERATOR Liudmila Obrien Other Providers SET MAKING MACHINE OPERATOR VALENTÍN [facility] Provider PHYSICIANS CERTIFIED PESTICIDE APPLICATOR Faraz Hamilton MD Admit Provider [facility] STAFF PHYSICIAN Attending Provider Discharge Potential Discharge Needs: PCP F/U Appt Anticipated Barriers to Discharge: None Identified Patient/Family Education Needs: Review discharge instructions, discuss Ask Me Three Transportation: Private vehicle Plan: Teto is admitted to the ICU with Multiple fractures of ribs of right side and Pneumothorax on right. Will needs a PT consult when medically appropriate. CM will support discharge planning considerations when better known. Discharge planning continues. Pt is interested in [facility], CM will send a referral to the [facility]. Social Determinants of Health Screening Social Determinants of health last assessed in clinic: 08/24/24 Will the Patient Participate in the Screening?: Yes Do you worry about having a steady place to live?: no Problems where you live: mold, unsafe rodriguez/stairs and other In the past 12 months, have you had to go without electric, gas, oil or water in your home?: no 1. Within the past 12 months, we worried whether our food would run out before we got money to buy more.: Never true 2. Within the past 12 months, the food we bought just didn't last and we didn't have money to get more.: Never true Has lack of transportation kept you from medical appointments or from doing things needed for daily living?: no Has anyone in your life made you feel unsafe or unsupported?: no How hard is it for you to pay for the very basics like food, housing, medical care, and heating? Would you say it is:: Somewhat hard Do you want help finding or keeping work or a job?: I do not need or want help If for any reason you need help with day-to-day activities such as bathing, pr eparing meals, shopping, managing finances, etc., do you get the help you need?: I get all the help I need How often do you feel lonely or isolated from those around you?: Never Do you speak a language other than Palestinian at home?: No Does the patient want assistance with any of the above?: Yes Health Related Social Needs Health related social needs: inadequate housing (Z59.1) and problems related to housing/economic circumstances (Z59.89) Health related social needs details: Possible black mold; patient has stated can be difficult to pay for things. 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
--- NOTE | 2024-08-24 11:35 | PHA.REVIEW2 ---
Pharmacy Admission Review Admission Clinical Review Admission Pharmacy Review: Pneumothorax on right (Acute) Multiple fractures of ribs of right side (Acute) codeine Adverse Reaction (Mild, Verified 08/23/24 23:39) Nausea latex Adverse Reaction (Mild, Verified 08/23/24 23:39) Other (See Comment) Resuscitation Status Full Code Height 5 ft 6 in Weight 56.1 kg Pharmacy Admission Review Renal Dosing Renal Dosing: BUN 25 mg/dL (7-18) H 08/24/24 05:38 Creatinine 0.8 mg/dL (0.55-1.02) 08/24/24 05:38 Medications needing adjustments: Reviewed (CrCl 38.34 mL/min, BUN decreased from 26) List of meds needing interventions: Current medications are okay Anticoagulation Anticoagulation: Hgb 11.2 g/dL (11.2-15.7) 08/24/24 05:38 Hct 32.8 % (36.0-46.0) L 08/24/24 05:38 Plt Count 179 10^3/uL (130-400) 08/24/24 05:38 Creatinine 0.8 mg/dL (0.55-1.02) 08/24/24 05:38 DVT Prophylaxis: Reviewed Medications: Heparin (q8h) Relevant Labs Relevant Labs: Sodium 139 mmol/L (136-145) 08/24/24 05:38 Potassium 3.8 mmol/L (3.5-5.1) 08/24/24 05:38 Chloride 101 mmol/L (98-107) 08/24/24 05:38 Electrolytes, C-Reactive P, ESR: Reviewed (WBC decreased from 15.33 to 8.52) Cardiac Review Cardiac Review: Blood Pressure 160/105 1002 Blood Pressure 107/57 0817 Blood Pressure 77/63 0815 Blood Pressure 125/58 0745 Blood Pressure 125/58 0612 Blood Pressure 120/59 0400 Blood Pressure 136/63 0200 Blood Pressure 134/65 0131 Blood Pressure 130/60 0101 Blood Pressure 136/61 0031 BP, HR, EF%: Reviewed (HR 59, oxygen flow rate = 2) QTc Review QTc: Reviewed (449 from 01/14/24 - most recent EKG on file) IV to PO Switch IV Medications: Reviewed (ketorolac) Home Meds Home Med List reviewed: Reviewed Relevent Home Meds Not ordered & why?: vitamin C, vitamin D, vitamin B complex and vitamin K Current Meds Current Medication Order Review: Reviewed
[2024-08-24] MEDS: Acetaminophen 500 MG TAB PO ×2 (12:02→17:37)
--- NOTE | 2024-08-24 14:43 | W.PM.PROGNOT ---
Date of Service Date of service: 08/24/24 Time of Service: 14:43 Objective Last Vital Signs Temp 36.8 C 08/24/24 00:28 Pulse 57 L 08/24/24 14:01 Resp 19 08/24/24 14:01 BP 107/55 L 08/24/24 14:01 Pulse Ox 93 08/24/24 14:04 Laboratory Results - last 24 hr 08/23/24 08/24/24 18:45 05:38 WBC 15.33 H 8.52 RBC 3.94 3.60 L Hgb 12.2 11.2 Hct 37.2 32.8 L MCV 94 91 MCH 31.0 31.1 MCHC 32.8 34.1 RDW 13.6 13.7 Plt Count 188 179 MPV 10.0 10.6 Immature Gran % 0.7 Neutrophils % 90.3 Lymphocytes % 3.6 Monocytes % 5.0 Eosinophils % 0.1 Basophils % 0.3 Nucleated RBC % 0.0 Absolute Neutrophils 13.84 H Absolute Lymphocytes 0.55 L Absolute Monocytes 0.77 Absolute Eosinophils 0.02 Absolute Basophils 0.05 Sodium 137 139 Potassium 4.2 3.8 Chloride 103 101 Carbon Dioxide 28.7 27.6 Anion Gap 5.3 10.4 BUN 26 H 25 H Creatinine 0.8 0.8 Est GFR (CKD-EPI 2020) 73.52 73.52 Glucose 138 H 110 H Calcium 9.9 9.2 Total Bilirubin 0.7 Conjugated Bilirubin 0.1 AST 43 H ALT 47 Alkaline Phosphatase 71 Total Protein 7.8 Albumin 4.1 Lipase 19
--- NOTE | 2024-08-24 14:45 | W.PM.PROGNOT ---
Date of Service Date of service: 08/24/24 Time of Service: 14:45 Assessment and Plan Assessment and plan (1) Multiple fractures of ribs of right side: Status: Acute Assessment and plan: Reviewed chest x-ray from yesterday as well as today. The radiologist is describing an infiltrate in the right lung base. Likely presence on admission. There is no visible pneumothorax. Will transfer her out of the ICU today, change her to floor status. If she is continuing to do well may be able to discharge her home tomorrow. Have advance her to a regular diet. She should continue respiratory therapy, as well as therapy with Acapella device. (2) Left ankle pain: Status: Acute Assessment and plan: Patient thinks she got an x-ray of her left foot, I am unable to find this in our PACS system. There is a note in the chart of a problem related to an ankle fracture. Will order a 2 view x-ray of the ankle, as well as the knee. Subjective Subjective Interval history since last seen: Patient is feeling well, she was reporting minimal pain, she would like to go home today. She does have some discomfort on her left ankle. Exam Narrative Exam Narrative: Examined the patient's chest today, with her nurse present as a magneto repairer. The ecchymosis on patient's right chest is very minimal, on the right lower flank along the mid axillary line. There is no ecchymosis on patient's anterior chest wall in the breast. Palpably the anterior chest wall is unremarkable. Her pulmonary exam is clear to auscultation bilaterally. Her vital signs showed pulse oximetry ranging from the high 90s to occasionally 88-89. Did examine her right ankle today, there is some minimal tenderness on the dorsal aspect of the foot, no ecchymosis no palpable instability of the joint. Objective Last Vital Signs Temp 36.8 C 08/24/24 00:28 Pulse 57 L 08/24/24 14:01 Resp 19 08/24/24 14:01 BP 107/55 L 08/24/24 14:01 Pulse Ox 93 08/24/24 14:04 Laboratory Results - last 24 hr 08/23/24 08/24/24 18:45 05:38 WBC 15.33 H 8.52 RBC 3.94 3.60 L Hgb 12.2 11.2 Hct 37.2 32.8 L MCV 94 91 MCH 31.0 31.1 MCHC 32.8 34.1 RDW 13.6 13.7 Plt Count 188 179 MPV 10.0 10.6 Immature Gran % 0.7 Neutrophils % 90.3 Lymphocytes % 3.6 Monocytes % 5.0 Eosinophils % 0.1 Basophils % 0.3 Nucleated RBC % 0.0 Absolute Neutrophils 13.84 H Absolute Lymphocytes 0.55 L Absolute Monocytes 0.77 Absolute Eosinophils 0.02 Absolute Basophils 0.05 Sodium 137 139 Potassium 4.2 3.8 Chloride 103 101 Carbon Dioxide 28.7 27.6 Anion Gap 5.3 10.4 BUN 26 H 25 H Creatinine 0.8 0.8 Est GFR (CKD-EPI 2020) 73.52 73.52 Glucose 138 H 110 H Calcium 9.9 9.2 Total Bilirubin 0.7 Conjugated Bilirubin 0.1 AST 43 H ALT 47 Alkaline Phosphatase 71 Total Protein 7.8 Albumin 4.1 Lipase 19 Time Spent with Patient Time Spent with Patient: <25 minutes Time was spent: preparing to see the patient(eg.review tests), indepentently interpreting results and counseling the patient
--- NOTE | 2024-08-24 16:45 | W.PC.ACHO ---
Registration Status: Primary Language: Preferred Language: ED Information & Data Chief Complaint Chest/Rib 08/23/24 19:29 Chief Complaint Chest/Rib 08/23/24 18:40 Triage Note Patient did not put car in 08/23/24 16:52 park/ turn off. Patient was trying to reach into car to put in park and turn off. Car door pushed her down. 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) Hx of tonsillectomy History of History of ectopic Brain tumor Most Recent Vital Signs Temperature 36.4 C L 08/24/24 16:35 Temperature Source Temporal Artery Scan 08/24/24 16:35 Pulse 64 08/24/24 16:35 Pulse 61 08/24/24 14:01 Respiratory Rate 16 08/24/24 16:35 Respiratory Effort Normal, Non-Labored 08/24/24 00:28 Respiratory Depth Normal 08/24/24 00:28 Respiratory Pattern Normal 08/24/24 00:28 Blood Pressure 121/50 L 08/24/24 16:35 Blood Pressure Mean 71 08/24/24 14:01 Pulse Oximetry 99 08/24/24 16:35 Oxygen Delivery Method Room Air 08/24/24 16:35 Oxygen Flow Rate 0 08/24/24 16:35 Pain Level 2 08/24/24 16:35 Comment vagal response in DI dept 08/24/24 08:15 Allergies codeine Adverse Reaction (Mild, Verified 08/23/24 23:39) Nausea latex Adverse Reaction (Mild, Verified 08/23/24 23:39) Other (See Comment) 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 Precautions Isolation Standard precaution 08/23/24 19:29 Active Medications Generic Name Dose Route Start Last Admin Trade Name Freq PRN Reason Stop Dose Admin Acetaminophen 500 mg 08/24/24 02:00 08/24/24 12:02 Acetaminophen 500 Mg Tab PO 500 mg Q4H DANIELLE Administration Cyclobenzaprine HCl 10 mg 08/24/24 08:30 08/24/24 14:31 Cyclobenzaprine 10 Mg Tab PO 08/31/24 08:29 10 mg TID DANIELLE Administration Heparin Sodium (Porcine) 5,000 units 08/24/24 06:00 08/24/24 14:31 Heparin 5,000 Units/Ml Vial SC 5,000 units Q8H DANIELLE Administration Ketorolac Tromethamine 15 mg 08/24/24 00:00 08/24/24 12:19 Ketorolac 15 Mg/Ml Vial IVP 08/29/24 00:00 Not Given Q6H DANIELLE Miscellaneous 1 each 08/24/24 06:00 08/24/24 07:38 Lidocaine Patch Removal TP 1 each 0600 DANIELLE Administration Sodium Chloride 0 ml 08/23/24 23:11 08/24/24 01:54 Normal Saline Flush 10 Ml Syr IVP 40 ml PRN PRN Administration Sodium Chloride 0 ml 08/24/24 08:30 08/24/24 08:37 Normal Saline Flush 10 Ml Syr IVP 20 ml BID DANIELLE Administration IV IV Catheter Type [Left Saline Lock Antecubital] IV Catheter Gauge [Left 18 Antecubital] Diet Orders Category Date Time Status Regular/Normal [DIET] Nutrition 08/24/24 Dinner Active Diagnostics 08/24/24 08/23/24 Range/Units 05:38 18:45 WBC 8.52 15.33 H (4.4-10.8) 10^3/uL RBC 3.60 L 3.94 (3.93-5.22) 10^6/uL Hgb 11.2 12.2 (11.2-15.7) g/dL Hct 32.8 L 37.2 (36.0-46.0) % MCV 91 94 (80-95) fL MCH 31.1 31.0 (27.0-33.0) pg MCHC 34.1 32.8 (32.0-36.0) % RDW 13.7 13.6 (11.7-14.6) % Plt Count 179 188 (130-400) 10^3/uL MPV 10.6 10.0 (8.0-11.0) fL Immature Gran % 0.7 % Neutrophils % 90.3 % Lymphocytes % 3.6 % Monocytes % 5.0 % Eosinophils % 0.1 % Basophils % 0.3 % Nucleated RBC % 0.0 (0.0-0.3) % Absolute Neutrophils 13.84 H (1.2-6.7) 10^3/uL Absolute Lymphocytes 0.55 L (1.2-3.4) 10^3/uL Absolute Monocytes 0.77 (0.1-0.8) 10^3/uL Absolute Eosinophils 0.02 (0.0-0.7) 10^3/uL Absolute Basophils 0.05 (0.0-0.2) 10^3/uL Sodium 139 137 (136-145) mmol/L Potassium 3.8 4.2 (3.5-5.1) mmol/L Chloride 101 103 (98-107) mmol/L Carbon Dioxide 27.6 28.7 (21.0-32.0) mmol/L Anion Gap 10.4 5.3 (3-11) mmol/L BUN 25 H 26 H (7-18) mg/dL Creatinine 0.8 0.8 (0.55-1.02) mg/dL Est GFR (CKD-EPI 2020) 73.52 73.52 (mL/min/1.73m2) Glucose 110 H 138 H (74-106) mg/dL Calcium 9.2 9.9 (8.5-10.1) mg/dL Total Bilirubin 0.7 (0.2-1.0) mg/dL Conjugated Bilirubin 0.1 (0.0-0.2) mg/dL AST 43 H (15-37) U/L ALT 47 (14-59) U/L Alkaline Phosphatase 71 (46-116) U/L Total Protein 7.8 (6.4-8.2) g/dL Albumin 4.1 (3.4-5.0) g/dL Lipase 19 (<78) U/L Intake and Output - 24 Hour Total 08/23/24 16:48 thru 08/24/24 16:35 Intake Total 580 Output Total 1525 Balance -945 Weight 56.1 kg Intake: IV 100 Oral 480 Output: Urine 1525 Other: Urine Color Yellow Urine Appearance Clear Urine Odor None # Voids 3 Falls Risk Assessment History of Falls Previous History 08/24/24 00:28 Contributing Factors No Factors 08/24/24 00:28 Ambulatory Aids Independent 08/24/24 00:28 Tubes/Lines W/no contributing factors 08/24/24 00:28 Gait Evaluation No gait disturbance 08/24/24 00:28 Cognition No cognitive impairment 08/24/24 00:28 Fall Total Score 08/24/24 00:28 Level of Risk Moderate Risk 08/24/24 00:28 Problems (Last Reviewed 07/26/24 @ 06:28 by Ehsan Prado MD) Left ankle pain (Acute) Pneumothorax on right (Acute) Multiple fractures of ribs of right side (Acute) v v v v v v v v v Sending and/or Receiving Nurses: Please use comment section below to note any information pertinent to the patient hand-off not included above. Information / Comments: A&O x4, impulsive at times, pt refuses meds at times, takes a holistic approach at home, lungs clear, heart regular, stand by assist w/ walker, Continent of bowel and bladder, Report received from: Geraldine FOX in ICU at 1620
--- NOTE | 2024-08-24 17:15 | CHAPLAIN ---
I visited Darvin this morning when she was in the ICU and still sleeping. Her friend Libertad was waiting for her to wake up, and her , Osmel also arrived. 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 I will plan to visit her tomorrow.
[2024-08-24] MEDS: Lidocaine 5% Patch 1 PATCH TP (17:37)
[2024-08-25 03:18] VITALS: BP 132/69; PULSE 68; RESP 18; TEMP 36.9; O2SAT 90
[2024-08-25] MEDS: Acetaminophen 500 MG TAB PO ×2 (04:56→09:48)
[2024-08-25] MEDS: LIDOCAINE Patch Removal 1 EACH TP (06:13)
[2024-08-25 07:35] VITALS: BP 129/68; PULSE 61; RESP 15; TEMP 37.1; O2SAT 94
[2024-08-25] MEDS: Ascorbic Acid 500 MG TAB 1000 MG PO (07:57)
[2024-08-25] MEDS: Vitamins B Comp w/C TAB 1 TAB PO (07:57)
[2024-08-25] MEDS: Normal Saline Flush 10 ML SYR IVP (07:57)
[2024-08-25] MEDS: Cholecalciferol (Vitamin D3) 1,000 UNIT TAB 2000 UNITS PO (07:57)
--- NOTE | 2024-08-25 08:23 | DI.RAD_ITS ---
Exam(s) XR PORTABLE CHEST AP EXAM: XR PORTABLE CHEST AP CLINICAL HISTORY: Right sided pumonary contusions and rib fractures TECHNIQUE: 2D digital imaging was performed of the chest. One image was obtained. An AP view was ob tained. COMPARISON: CR,XR XR PORTABLE CHEST AP from 08/23/2024 FINDINGS: MEDIASTINUM: Normal. HEART: Normal. PULMONARY VASCULATURE: Normal. LUNGS: There is atelectasis seen in the right lung base. The left lung remains clear. PLEURAL SPACE: There is blunting of the right costophrenic angle suggesting a small pleural effusion versus pleural scarring. No left pleural effusion. No demonstrable pneumothorax is seen. BONE:Within normal limits for the patient's age. The patient's known rib fractures are best appreciat ed on the CT examination. OTHER FINDINGS:Normal. IMPRESSION: No pneumothorax is demonstrated on this chest x-ray. DATA REPOSITORY: RADIATION DOSE DELIVERED:
--- NOTE | 2024-08-25 08:35 | DI.RAD_ITS ---
Exam(s) XR FOOT LT COMPLETE EXAM: XR FOOT LT COMPLETE CLINICAL HISTORY: Left 1st toe fracture. TECHNIQUE: 2D digital imaging was performed of the left foot. Three images were obtained. AP, obli que and lateral views were obtained. COMPARISON: CR XR ANKLE LT 2V from 08/24/2024 FINDINGS: BONES: There is an acute nondisplaced fracture involving the medial aspect of the base of the 1st met atarsal. The fractured does appear to extend into the 1st TMT joint. No bony destructive lesion is seen. JOINTS: No dislocation present. There are marked degenerative changes seen at the 1st metatarsophalan geal joint. SOFT TISSUE: Normal. IMPRESSION: Nondisplaced fracture involving the medial aspect of the base of the 1st metatarsal. DATA REPOSITORY: RADIATION DOSE DELIVERED:
--- NOTE | 2024-08-25 10:15 | PDOC.CMPRO ---
Date of service: 08/25/24 Time of Service: 10:15 Social Determinants of Health Screening Social Determinants of health last assessed in clinic: 08/24/24 Will the Patient Participate in the Screening?: Yes Do you worry about having a steady place to live?: no Problems where you live: mold, unsafe rodriguez/stairs and other In the past 12 months, have you had to go without electric, gas, oil or water in your home?: no Has lack of transportation kept you from medical appointments or from doing things needed for daily living?: no Has anyone in your life made you feel unsafe or unsupported?: no How hard is it for you to pay for the very basics like food, housing, medical care, and heating? Would you say it is:: Somewhat hard Do you want help finding or keeping work or a job?: I do not need or want help If for any reason you need help with day-to-day activities such as bathing, preparing meals, shopping, managing finances, etc., do you get the help you need?: I get all the help I need How often do you feel lonely or isolated from those around you?: Never Do you speak a language other than Nepalese at home?: No Does the patient want assistance with any of the above?: Yes Health Related Social Needs Health related social needs: inadequate housing (Z59.1) and problems related to housing/economic circumstances (Z59.89) Health related social needs details: Possible black mold; patient has stated can be difficult to pay for things.
--- NOTE | 2024-08-25 10:53 | PGE_ITS ---
Date of Service Date of service: 08/25/24 Time of Service: 10:53 Assessment and Plan Assessment and plan (1) Multiple fractures of ribs of right side: Status: Acute Assessment and plan: Doing well from this, pulmonary function is fine. Active at baseline, gave precautions for home. Plan for home today if cleared by specialist. (2) Fracture of metatarsal of left foot, closed: Status: Acute Assessment and plan: Put out call to orthopedist disaster recovery consultant today, recommended to consult podietry. Have placed call to Dr. Bhumi Pérez. When cleared by service crew supervisor, plan for d/c home. (3) Pneumothorax on right: Status: Acute Assessment and plan: Likely over-read from initial CT, followup CXR's do not indicate this. Subjective Subjective Interval history since last seen: Feeling well, breathing fine, ambulating fine. Wants to go home today. present today at bedside. Exam Narrative Exam Narrative: Elderly adult female patient awake and in no discomfort today. Examined today with her nurse. Right chest with some tenderness to palpation, no progression of ecchymosis, measures about 2x2cm on right lower flank just below costal margin. One of rib fractures can be palpated below superior portion of right breast parenchyma, remainder of rib fractures are difficult to palpate. Left foot palpated, along left 1st metatarsal at radiographic site of fracture, there is some tenderness to palpation as expected. Objective Last Vital Signs Temp 37.1 C 08/25/24 07:35 Pulse 61 08/25/24 07:35 Resp 15 08/25/24 07:35 BP 129/68 08/25/24 07:35 Pulse Ox 94 08/25/24 07:35 Objective Narrative Objective Narrative: Left foot XR showing left 1st metatarsal fracture. Viewed XR, hard to see for me, but appears quite small. CXR reviewed from today, read indicating small right pleural effusion. Reviewed image, effusion is unchanged from prior. Lung zhao look fine. Time Spent with Patient Time Spent with Patient: <25 minutes Time was spent: preparing to see the patient(eg.review tests), obtaining and/or reviewing separately otained hiistory, ordering medications,tests, procedures and referring, communicating with other health pet care technician
--- NOTE | 2024-08-25 11:21 | CMDISCH_ITS ---
Date of service: 08/25/24 Time of Service: 11:21 LACE Index Scoring Tool Questions: Length of Stay (in days): 2 Was the patient admitted via the E.D.?: Yes E.D. Visits: 2 Answers: Total Score: 7 Risk of Readmission: Low Risk Care Management Discharge Plan Reason for Hospitalization: Rib Fractures Discharge Plan: Discharge home via private vehicle with family. Follow up with community providers and discharge plan of care as directed. No [facility] services are indicated at time of discharge. Darvin is interested in getting more help at home and [facility]. Referral was placed with [facility] prior to discharge. Patient/Family Education Needs: Review discharge instructions, limitations, medications and plan to follow up with community providers. Discuss ask me three. SDOH Health Related Social Needs: Health related social needs inadequate housing (Z59.1) , problems related to housing/economic circumstances (Z59.89) Health related social needs details Possible black mol d; patient has stated can be difficult to pay for things. Health related social needs details: Possible black mold; patient has stated can be difficult to pay for things.
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
[2024-08-25 11:43] VITALS: BP 100/62; PULSE 76; RESP 15; TEMP 36.6; O2SAT 97
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
== END 2024-08-25 12:22 | disposition home or self-care (01) ==
LOC: ER 08-24 00:04 → ICU 08-24 00:07 → MS 08-24 16:28
PROVIDERS: Admitting Provider Surgery; Emergency Provider Physician Assistant; PCP General Practice; Visit Provider Surgery
DX: S22.41XA Multiple fractures of ribs, right side, initial encounter for closed fracture (principal); S92.315A Nondisplaced fracture of first metatarsal bone, left foot, initial encounter for closed fracture; M25.572 Pain in left ankle and joints of left foot; R91.1 Solitary pulmonary nodule; V48.4XXA Person boarding or alighting a car injured in noncollision transport accident, initial encounter; Z59.89 Other problems related to housing and economic circumstances; S27.0XXA Traumatic pneumothorax, initial encounter; Z79.899 Other long term (current) drug therapy
CPT/HCPCS: 36415; 74177; 80048; 80076; 83690; 85027; 96365; 96372; 96375; 96376; 99223; 99231; 99238; 99285; 71045; 71046; 71260; 73560; 73600; 73630; 85025; J0131; J1644; J1885; J3490

== ENCOUNTER 2025-03-31 16:48 | Emergency (ER) | payer MEDICARE, SELFPAY ==
[2025-03-31 16:49] VITALS: BP 108/70; PULSE 71; RESP 16; TEMP 36.3; O2SAT 98
--- NOTE | 2025-03-31 17:15 | DI.RAD_ITS ---
Exam(s) XR KNEE LT 3V AP,LAT,DAVID EXAM: XR KNEE LT 3V AP,LAT,DAVID CLINICAL HISTORY: weakness. TECHNIQUE: 2D digital imaging was performed of the left knee. Three images were obtained. AP, lateral and PA tunnel views were obtained. COMPARISON: CR XR KNEE LT 2V AP,LAT from 08/24/2024 FINDINGS: BONES: No acute fracture is present. No bony destructive lesion is seen. There is a small enthesophyte at the superior patella. JOINTS: The knee is normally aligned. There is a small joint effusion. No loose body. SOFT TISSUE: Normal. IMPRESSION: 1. Small joint effusion. 2. There is no acute fracture or dislocation. 3. The preliminary [facility] report was reviewed. DATA REPOSITORY: RADIATION DOSE DELIVERED:
--- NOTE | 2025-03-31 17:15 | RT.EKG_ITS ---
APPROVED REPORT Exam: Resting ECG Reason for Exam: weakness Patient Location: E HR:65 bpm ECG Measurements Heart Rate 65 AXIS NH 167 P 12 QRSd 91 QRS 4 QT 399 T 54 QTc 414 Conclusion Sinus rhythm...normal P axis, V-rate 60- 99 Low voltage, precordial leads...precordial leads <1.0mV No STEMI
--- NOTE | 2025-03-31 17:23 | DI.CT_ITS ---
Exam(s) CT HEAD WO EXAM: CT HEAD WO CLINICAL HISTORY: weakness. TECHNIQUE: Imaging Protocol: Axial computed tomography images with coronal and sagittal reformatted images were created and reviewed COMPARISON: CT CT HEAD CERVICAL SPINE WO from 02/19/2018 FINDINGS: Ventricles and Extra axial spaces: Normal in size and morphology for the patient's age. Hemorrhage: None. Cerebral parenchyma: There are areas of decreased attenuation in the white matter consistent chronic microvascular ischemic disease. There is no evidence of an acute territorial infarct. There is encephalomalacia involving the right cerebellum. Midline shift: None. Brainstem/Cerebellum: Normal. Calvarium: There again seen findings of a prior right occipital craniectomy. Visualized Paranasal sinuses/Mastoids: Clear. Soft Tissues: Unremarkable. IMPRESSION: 1. No acute intracranial process. 2. The preliminary [facility] report was reviewed. RADIATION DOSE DELIVERED: 849.66mGy.cm Total DLP DATA REPOSITORY: All CT scans at this facility are submitted to the National Radiology Data Registry (NRDR) Dose Index Registry (DIR) with the [employer] (ACR). RADIATION OPTIMIZATION: All CT scans at this facility use at least one of these dose optimization techniques: automated exposure control; mA and/or kV adjustment per patient size (includes targeted exams where dose is matched to clinical indication); or iterative reconstruction.
[2025-03-31 17:53] LABS: Abs Immature Grans 0.03 10^3/uL (0.0-0.06); HCT 37.1 % (36.0-46.0); HGB 12.2 g/dL (11.2-15.7); Immature Grans % 0.3 %; MCH 30.0 pg (27.0-33.0); MCHC 32.9 % (32.0-36.0); MCV 91 fL (80-95); MPV 9.9 fL (8.0-11.0); Platelet Count 220 10^3/uL (130-400); RBC 4.07 10^6/uL (3.93-5.22); RDW 13.2 % (11.7-14.6); RDW-SD 44.6 fL; WBC 10.12 10^3/uL (4.4-10.8)
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
[2025-03-31 18:05] LABS: Glucose Negative (Negative)
[2025-03-31 18:21] LABS: ALT 18 U/L (10-49); AST 21 U/L (<34); Albumin 4.5 g/dL (3.2-5.0); Alkaline Phosphatase 73 U/L (46-116); Anion Gap 7.6 mmol/L (3-11); BUN 24 mg/dL (9-23); Bilirubin, Total 0.80 mg/dL (0.2-1.2); CO2 28.4 mmol/L (20.0-31.0); Calcium 9.7 mg/dL (8.3-10.6); Chloride 104 mmol/L (98-107); Glucose 98 mg/dL (74-106); Magnesium 1.9 mg/dL (1.6-2.6); Potassium 4.0 mmol/L (3.5-5.1); Sodium 140 mmol/L (136-145); Total Protein 7.7 g/dL (5.7-8.2)
[2025-03-31 18:22] LABS: TSH (W/Ref FT4) 2.93 uIU/mL (0.55-4.78)
[2025-03-31 18:23] LABS: C & S Indicated? No
--- NOTE | 2025-03-31 18:53 | DI.[facility]_ITS ---
PROCEDURE INFORMATION: Exam: CT Head Without Contrast Exam date and time: 03/31/2025 6:08 PM Age: 84 years old Clinical indication: Other: Weakness TECHNIQUE: Imaging protocol: Computed tomography of the head without contrast. COMPARISON: No relevant prior studies available. FINDINGS: Brain: There is parenchymal atrophy. Periventricular and subcortical white matter areas of hypoattenuation, likely chronic small vessel ischemic change, demyelination, or gliosis. Right posterolateral and right medial cerebellar encephalomalacia. No intracranial mass, acute hemorrhage, or acute infarction. Cerebral ventricles: No ventriculomegaly. Paranasal sinuses: Visualized sinuses are unremarkable. No fluid levels. Mastoid air cells: Normal as visualized. Bones: Changes of prior right retromastoid craniectomy. Soft tissues: Unremarkable. IMPRESSION: No acute intracranial abnormality. Dictated and Authenticated by: Rey Boss MD. Orderin Ayad Rosenbaum MD
--- NOTE | 2025-03-31 18:54 | DI.[facility]_ITS ---
PROCEDURE INFORMATION: Exam: XR Left Knee Exam date and time: 03/31/2025 6:18 PM Age: 84 years old Clinical indication: Weakness TECHNIQUE: Imaging protocol: Radiologic exam of the left knee. Views: 3 views. COMPARISON: CR XR KNEE LT 2V AP,LAT 08/24/2024 4:44 PM FINDINGS: Bones/joints: Small-sized knee joint effusion. Mild degenerative narrowing of the medial femorotibial articular compartment. No acute fracture or dislocation. Soft tissues: Normal. IMPRESSION: 1. No acute fracture or dislocation. 2. Small-sized knee joint effusion. Dictated and Authenticated by: Rey Boss MD. Orderin Ayad Rosenbaum MD
[2025-03-31 19:51] VITALS: BP 113/40; BP 129/114; PULSE 69; PULSE 84; O2SAT 97
== END 2025-03-31 20:30 | disposition home or self-care (01) ==
PROVIDERS: Emergency Provider Physician Assistant; PCP Nurse Practitioner Family
DX: M25.462 Effusion, left knee (principal); R53.1 Weakness; Z59.10 Inadequate housing, unspecified
CPT/HCPCS: 36415; 73562; 80053; 93005; 99285; 70450; 81003; 81015; 83735; 84443; 85025; 93010; 99283

== ENCOUNTER 2025-04-24 13:37 | Emergency (ER) | payer MEDICARE, SELFPAY ==
[2025-04-24 13:52] VITALS: BP 114/47; PULSE 67; RESP 20; TEMP 36.5; O2SAT 98
[2025-04-24 13:55] VITALS: BP 114/47; PULSE 67; RESP 15; RESP 20; TEMP 36.5; O2SAT 98
--- NOTE | 2025-04-24 14:00 | RT.EKG_ITS ---
APPROVED REPORT Exam: Resting ECG Reason for Exam: Weakness Patient Location: E HR:68 bpm ECG Measurements Heart Rate 68 AXIS NE 169 P 50 QRSd 80 QRS -18 QT 406 T 68 QTc 433 Conclusion Sinus rhythm...normal P axis, V-rate 60- 99 Low voltage, extremity leads...all extremity leads <0.5mV
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
[2025-04-24 14:20] LABS: Abs Immature Grans 0.03 10^3/uL (0.0-0.06); HCT 36.4 % (36.0-46.0); HGB 12.1 g/dL (11.2-15.7); Immature Grans % 0.4 %; MCH 30.0 pg (27.0-33.0); MCHC 33.2 % (32.0-36.0); MCV 90 fL (80-95); MPV 9.6 fL (8.0-11.0); Platelet Count 225 10^3/uL (130-400); RBC 4.03 10^6/uL (3.93-5.22); RDW 13.2 % (11.7-14.6); RDW-SD 43.8 fL; WBC 7.05 10^3/uL (4.4-10.8)
[2025-04-24 14:40] LABS: Magnesium 1.8 mg/dL (1.6-2.6)
[2025-04-24 14:41] LABS: ALT 18 U/L (10-49); AST 22 U/L (<34); Albumin 4.0 g/dL (3.2-5.0); Alkaline Phosphatase 92 U/L (46-116); Anion Gap 8.6 mmol/L (3-11); BUN 24 mg/dL (9-23); Bilirubin, Total 0.6 mg/dL (0.2-1.2); CO2 24.4 mmol/L (20.0-31.0); Calcium 9.0 mg/dL (8.3-10.6); Chloride 104 mmol/L (98-107); Glucose 106 mg/dL (74-106); Potassium 4.2 mmol/L (3.5-5.1); Sodium 137 mmol/L (136-145); Total Protein 6.9 g/dL (5.7-8.2)
[2025-04-24 16:18] LABS: Glucose Negative (Negative)
[2025-04-24 16:30] LABS: C & S Indicated? Yes; RBC 20-50 HPF (0-2); WBC >50 HPF (0-5)
[2025-04-24 17:06] VITALS: BP 114/47; PULSE 67; RESP 15; TEMP 36.5; O2SAT 98
[2025-04-24] MEDS: Fosfomycin Tromethamine 3 GM PACKET PO (17:06)
--- NOTE | 2025-04-25 11:31 | W.ED.FU ---
Date of service: 04/25/25 Time of Service: 11:31 Follow Up Plan: This patient was in the emergency department yesterday with generalized weakness. She had a leuk esterase positive urinalysis growing gram-negative rods with sensitivities pending. She received fosfomycin.
== END 2025-04-24 17:07 | disposition home or self-care (01) ==
PROVIDERS: Registered Nurse Emergency; Emergency Provider Physician Assistant; PCP Nurse Practitioner Family
DX: N39.0 Urinary tract infection, site not specified (principal); R53.1 Weakness
CPT/HCPCS: 99283 ×2; 80053; 87077; 93005; 81003; 81015; 83735; 85025; 87086; 87186; 93010; J3490